=== PATIENT | female | born 1960 | race Caucasian/White ===

== ENCOUNTER → 2017-11-28 16:50 | Outpatient (CLI) | payer BC, SELFPAY ==
[2017-11-28 18:22] LABS: Thyroid Stim Hormone (TSH) 1.38 uIU/mL (0.358-3.74)
[2017-12-04 12:08] LABS: Testosterone, Free < 0.09 ng/dL (0.10-0.85); Testosterone, Total < 3 ng/dL (3-41)
[2017-12-04 14:28] LABS: Testosterone, % Free 2.95 % (0.50-2.80)
== END ==
PROVIDERS: Family Provider Family Medicine; PCP Family Medicine; Visit Provider Family Medicine
DX: L65.9 Nonscarring hair loss, unspecified (principal)
CPT/HCPCS: 36415; 84402; 84403; 84443

== ENCOUNTER → 2018-01-15 05:59 | Outpatient (CLI) | payer BC, SELFPAY ==
[2018-01-15 06:16] LABS: Bacteria 0 SEEN /hpf (None Seen); Mucous, Urine 0 SEEN /hpf (<or=2+); Red Blood Cells-Urine 0 SEEN /hpf (0-5); Squamous Epithelial Cells - UA 0 SEEN /hpf (5-10)
[2018-01-15 07:06] LABS: Absolute Lymphocyte Count 1.55 X10^3/ul (0.83-4.51); Absolute Neutrophil Count 3.2 X10^3/uL (2.0-7.7); Basophil# 0.03 X10^3/uL; Basophil% 0.6 % (0-1); Eosinophil# 0.18 X10^3/uL; Eosinophils% 3.3 % (0-5); Hematocrit 42.6 % (37-47); Hemoglobin 13.8 g/dl (12.0-15.0); Lymphocyte # 1.55 X10^3/ul (4.0); Lymphocyte % 28.4 % (19-41); Mean Corp Hgb Conc 32.4 g/gl (32-36); Mean Corpuscular Hgb 31.7 pg (27.0-32.0); Mean Corpuscular Volume 97.9 fL (81-99); Mean Platelet Vol. 10.1 fl (6.2-12.0); Monocyte# 0.53 X10^3/uL; Monocyte% 9.7 % (0-10); Neutrophil # 3.16 X10^3/uL (2.7-7.7); Platelet Count 274 K/mm3 (150-450); RBC Distribution Width CV 13.3 % (11.6-14.6); RBC Distribution Width SD 47.7 fl (35.1-43.9); Red Blood Count 4.35 M/mm3 (4.2-5.4); White Blood Count 5.5 K/mm3 (4.4-11.0)
[2018-01-15 07:28] LABS: ALB/GLOB Ratio 1.1 RATIO (0.9-2.4); AST(SGOT) 18 U/L (15-37); Alanine Aminotransfer ALT/SGPT 20 U/L (13-56); Albumin, Serum 4.1 g/dL (3.2-5.0); Alkaline Phosphatase 54 U/L (45-117); Anion Gap 6 (5-15); BUN 16 mg/dL (7-18); BUN/Creat Ratio 19.2 RATIO (10-20); Chloride 105 mmol/L (98-107); Cholesterol 171 mg/dL (200); Creatinine, Serum 0.84 mg/dL (0.55-1.02); EST Glomerular Filtration Rate 75 mL/min (>60); Est Glom Filt Rate - Afr Amer 91 mL/min (>60); Globulin 3.7 g/dL (2.2-4.2); Glucose 84 mg/dL (74-106); High Density Lipoprotein 49 mg/dL; Protein, Total 7.8 g/dL (6.4-8.2); Sodium Level 141 mmol/L (136-145); Triglycerides 64 mg/dL; Very Low Density Lipoprotein 13 mg/dL (5-40)
[2018-01-15 07:58] LABS: POSITIVE COUNT NO; POSITIVE DIFFERENTIAL NO; POSITIVE MORPHOLOGY NO
[2018-01-15 08:03] LABS: Color, Urine Yellow (Yellow); Glucose, Dipstick Normal (Normal); Ketone-Dipstick Negative (Negative); Leukocyte Esterase-Dipstick 25 /ul (Negative); Nitrite-Dipstick Negative (Negative); Occult Blood-Urine Negative /ul (Negative); Protein-Dipstick Negative (Negative); Specific Gravity, Urine 1.015 (1.002-1.030); Urine Bilirubin Dipstick Negative (Negative); Urine Clarity Sl. Cloudy (Clear); Urine Urobilinogen Normal (Normal)
[2018-01-15 08:20] LABS: White Blood Cells 0-5 SEEN /hpf (0-5)
== END ==
PROVIDERS: Family Provider Family Medicine; PCP Family Medicine; Visit Provider Family Medicine
DX: Z00.00 Encounter for general adult medical examination without abnormal findings (principal); R35.0 Frequency of micturition
CPT/HCPCS: 36415; 80053; 80061; 81001; 85025; 87086; 87088

== ENCOUNTER → 2018-11-20 | Outpatient (CLI) | payer BC, SELFPAY ==
--- NOTE | 2018-11-20 07:34 | BI_ITS ---
MAMMOGRAPHY - BILATERAL SCREENING REASON FOR EXAM: Female, 58 years old. Routine annual screening examination. PERTINENT HISTORY: Sister with breast cancer. TECHNIQUE: Digital bilateral breast ethel (3D mammographic acquisition) in the CC and MLO projections. 2-D mediolateral oblique (MLO) and craniocaudad (CC) views of both breasts were obtained. CAD: Full Field Digital Mammography with Computer Added Detection was performed. COMPARISON: Comparison is made with prior study dated June 19, 2017 and September 23, 2015. FINDINGS: Breast Composition: The breasts are heterogeneously dense, which may obscure small masses. There are no dominant masses or suspicious calcifications. No other significant abnormalities are identified. There has been no significant change since the prior study. BI/SCREENING MAMM (CAD), BILAT IMPRESSION: Stable bilateral screening mammogram. Yearly follow-up mammogram recommended. (A) ASSESSMENT CATEGORY: BIRADS Category 1: Negative. A letter regarding these results will be sent to the patient by the facility within 30 days. Approximately 10% of breast cancers are not detected by mammography. A normal mammogram should not delay biopsy of a clinically suspicious abnormality. [id number] Electronically Signed: Poncho Beckwith, at 11:03 EDT , Service support ,
== END | disposition home or self-care (01) ==
LOC: OPBI 07:33
PROVIDERS: Family Provider Family Medicine; PCP Family Medicine; Referring Provider Obstetrics & Gynecology; Visit Provider Obstetrics & Gynecology
DX: Z12.31 Encounter for screening mammogram for malignant neoplasm of breast (principal)
CPT/HCPCS: 77063; 77067

== ENCOUNTER → 2020-05-21 | Outpatient (CLI) | payer BC, SELFPAY | END | disposition home or self-care (01) | PROVIDERS: PCP Family Medicine; Visit Provider Nurse Practitioner Family | DX: Z20.828 Contact with and (suspected) exposure to other viral communicable diseases (principal) | CPT/HCPCS: 87635; U0003 ==

== ENCOUNTER → 2020-07-02 14:53 | Outpatient (CLI) | payer BC, SELFPAY ==
--- NOTE | 2020-07-02 14:55 | BI_ITS ---
MAMMOGRAPHY - BILATERAL SCREENING REASON FOR EXAM: Female, 59 years old. Routine annual screening examination. PERTINENT HISTORY: Sister with breast cancer. TECHNIQUE: Digital bilateral breast michael (3D mammographic acquisition) in the CC and MLO projections. 2-D mediolateral oblique (MLO) and craniocaudad (CC) views of both breasts were obtained. CAD: Full Field Digital Mammography with Computer Added Detection was performed. COMPARISON: Comparison is made with prior study dated 11/20/2018 and 06/19/2017. FINDINGS: Breast Composition: The breasts are heterogeneously dense, which may obscure small masses. A cluster of faint calcifications is now seen in the central slightly medial portion of the left breast. The patient will be recalled for additional views including magnification spot views. No other significant abnormalities are identified. BI/SCREEN MAMM (CAD) W/MICHAEL BILAT IMPRESSION: New cluster microcalcifications seen in the deep central medial portion of the left breast as described. The patient will be recalled for additional views including compression spot views. ASSESSMENT CATEGORY: BIRADS Category 0: Incomplete. Need additional imaging evaluation. A letter regarding these results will be sent to the patient by the facility within 30 days. Approximately 10% of breast cancers are not detected by mammography. A normal mammogram should not delay biopsy of a clinically suspicious abnormality. [id number] Electronically Signed: Poncho Beckwith, at 8:29 EST , Service support ,
== END ==
PROVIDERS: PCP Family Medicine; Referring Provider Family Medicine; Visit Provider Family Medicine
DX: Z12.31 Encounter for screening mammogram for malignant neoplasm of breast (principal); R92.0 Mammographic microcalcification found on diagnostic imaging of breast; Z80.3 Family history of malignant neoplasm of breast
CPT/HCPCS: 77063; 77067

== ENCOUNTER → 2020-07-06 14:36 | Outpatient (CLI) | payer BC, SELFPAY ==
--- NOTE | 2020-07-06 14:37 | BI_ITS ---
MAMMOGRAPHY - UNILATERAL DIAGNOSTIC: LEFT BREAST REASON FOR EXAM: Female, 59 years old. Abnormal screening mammogram. PERTINENT HISTORY: Sister with breast cancer. TECHNIQUE: Compression magnification spot views of the left breast in the craniocaudad and mediolateral oblique projections were obtained. CAD: Full Field Digital Mammography with Computer Added Detection was performed. COMPARISON: Comparison is made with prior examination dated 07/02/2020. FINDINGS: Breast Composition: The breasts are heterogeneously dense, which may obscure small masses. A cluster microcalcification is seen in the central slightly medial portion of the left breast. A biopsy is recommended. No other significant abnormalities are identified. BI/DIAG MAMM W/CAD, UNILAT IMPRESSION: Biopsy of the cluster of microcalcifications in the central slightly medial aspect of the breast is recommended. ASSESSMENT CATEGORY: BIRADS Category 4: Suspicious - Biopsy Should Be Considered. A letter regarding these results will be sent to the patient by the facility within 30 days. Approximately 10% of breast cancers are not detected by mammography. A normal mammogram should not delay biopsy of a clinically suspicious abnormality. Electronically Signed: Poncho Beckwith, at 15:12 EST , Service support ,
== END ==
PROVIDERS: PCP Family Medicine; Visit Provider Family Medicine
DX: R92.8 Other abnormal and inconclusive findings on diagnostic imaging of breast (principal); Z80.3 Family history of malignant neoplasm of breast
CPT/HCPCS: 77065

== ENCOUNTER → 2020-07-12 11:28 | Outpatient (CLI) | payer BC, SELFPAY ==
[2020-07-08 10:05] VITALS: BMI 26.6
--- NOTE | 2020-07-12 | BRBX_PTH ---
PATIENT: BEHZAD MOYER LOC: [facility] U#:[id number] AGE/SX: 64/F ROOM: RE07/12/[address]: Dr. Agustin Montero MD : 1960 BED: DIS: SPEC #: [id number] RECD: 07/12/20 12:58 STATUS: LUCAS VIC #: [id number] ARIES: 07/12/20 00:[address]: Agustin Montero DEPT: SURGICAL PATHOLOGY RECD BY: Timmy Deluca ENTERED: 07/12/20 12:58 SP TYPE: BREAST BX OTHR DR: Dr. 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 Nuclear Grade - 3 Necrosis - present (central comedo necrosis). Calcifications - present. See comment. TOPHER:lula 07/13/20 COMMENT Immunohistochemistry ([id number]) supports the above diagnosis. ER/NM/Byt0ijf studies are being performed on sections of tumor and the results from this study will be reported separately ([id number]). MICROSCOPIC DESCRIPTION Slides are reviewed. GROSS DESCRIPTION Received in fixative is one container labeled with the patient name and designated left breast. The specimen consists of multiple elongated fragments of hernandez-yellow fibroadipose tissue that in aggregate measure 5 x 3 x 0.3 cm. The entire specimen is submitted in two cassettes. / TOPHER:lula 07/12/20 TC:0 CPT: 00930
--- NOTE | 2020-07-12 | IMM_PTH ---
PATIENT: BEHZAD MOYER LOC: [facility] U#:[id number] AGE/SX: 64/F ROOM: RE07/12/[address]: Dr. Agustin Montero MD : 1960 BED: DIS: SPEC #: [id number] RECD: 07/13/20 13:46 STATUS: LUCAS REQ #: [id number] ARIES: 07/12/20 00:[address]: Agustin Montero DEPT: IMMUNOHISTOCHEMISTRY RECD BY: Siri Sanchez ENTERED: 07/13/20 13:47 SP TYPE: IMMUNO OTHR DR: Dr. Ernesto Buckner MD Tissues: Left breast, NOS Procedures: CALPONIN-1 (add) CK8 (add) E-CAD (add) HER2 KEON (add) AR (add) P40 (add) ER (initial) PHYSICIAN & INSTITUTION [place] [id number] SPECIMEN INFORMATION: Tissue Source: Left breast stereotactic core biopsy Clinical Info: Calcifications Specimen Number: [id number] #2 CPT code: 25998, 62664 x3, 70719 x3 METHODOLOGY: Deparaffinized sections of prefer/formalin-fixed tissue or PAP/DQ stained slides are incubated with monoclonal/polyclonal antibodies/oligonucleotide probes. Localization is made via biotin free immunoperoxidase method. Appropriate controls are performed and reacted as expected. Results on target cell population are indicated in the following table: RESULTS: ANTIBODY / CLONE RESULT Block 2 E-Cad (ECH-6) positive CK8 (43xgyxL30) positive Calponin-1 (HQ794S) positive P40 (BC28) positive MORPHOMETRIC ANALYSIS ER (clone 6F11) positive (>95%, strong intensity) AR (clone 16/1E2) positive (71%, low to moderate intensity) Her-2Neu (clone CB11) positive (2-3+) The prognostic test for HER2 is performed on formalin-fixed paraffin embedded tissue. A 3+ (positive) staining pattern is defined as intense, homogeneous, complete, circumferential membranous staining in >10% of contiguous tumor cells. A similar weak (2+) staining pattern is interpreted as equivocal. AMOR follow-up testing is recommended for all equivocal cases. Positivity/negativity for ER/AR is reported if > or < 1% of the tumor cells are immuno- reactive, respectively. The ASCO/CAP criteria is used for scoring. Reference: Journal of Clinical Oncology, 2013; 31:9817-6532 & 2010; 16:3991-9113. Duration of fixation: 7.5 Hrs; Sample Adequate: Yes. These assays have not been validated on decalcified tissues. Results should be interpreted with caution given the likelihood of false negativity on decalcified specimens. These tests were developed and their performance characteristics determined by [facility]. They may not have been cleared or approved by the U.S. Food and Drug Administration. The FDA has determined that such clearance or approval is not necessary. The above immunohistochemical/dualISH markers are ordered and reviewed by the Pathologist. INTERPRETATION: Left breast, stereotactic core biopsy: Ductal carcinoma in situ. SJ:lula 07/14/20
--- NOTE | 2020-07-12 11:06 | HP.PCM_ITS ---
Problem List (1) Abnormal mammogram of left breast Status: Acute History and Physical Date of Admission: 07/12/20 Intake Visit Reasons: LEFT BREAST BIRADS 4 Category Analyst Required: No Is patient in pain?: No Allergies Sulfa (Sulfonamide Antibiotics) Allergy (Unknown, Verified 07/08/20 10:07) unknown Medications wwyuqsh-wbrantsrbrmfw-sdxkiwok 250 mg-250 mg-65 mg tablet 1 tab PO ONCE 07/08/20 [History Confirmed 07/08/20] biotin 1 mg capsule 1 mg PO DAILY 07/08/20 [History Confirmed 07/08/20] cholecalciferol (vitamin D3) 10 mcg (400 unit) capsule 10 mcg PO DAILY 07/08/20 [History Confirmed 07/08/20] multivitamin 1 tab PO DAILY 07/08/20 [History Confirmed 07/08/20] saw palmetto 160 mg capsule 160 mg PO DAILY cap 07/08/20 [History Confirmed 07/08/20] PFSH Medical History Hx of migraines (Acute) Abnormal mammogram of left breast (Acute) Family history of breast cancer (Acute) Surgical History Hx of cataract extraction (Acute) Hx of dilation and curettage (Acute) Hx of wisdom tooth extraction (Acute) Hx of colonoscopy (Acute) Family History Mother Arthritis Father Diabetes Sister Breast cancer Social History (Updated 07/08/20 @ 10:[address] Agustin Montero MD) Smoking Status: Never smoker second hand exposure: No alcohol intake: never substance use type: does not use caffeine: Yes what type of physical activity do you participate in: walking frequency: 3-4 times per week HPI HPI HPI: BEHZAD MOYER, is a 59 F who presents to the office today for surgical consultation regarding an abnormal mammogram. The patient is referred by Dr Ernesto Buckner and a written copy of my surgical consult and recommendations will be returned to him 59-year-old female. G5, . Menarche was at age 13. First child was born when she was 28. She did breast-feed. She did spend some time in [place] and she had some breast cyst aspirations. She claims that a cytology was negative. Her family history is notable for a sister who of breast cancer at age 35. She is not aware that there is been any genetic testing previously obtained. At the [facility] on July 02, 2020 she had screening bilateral mammography. These were compared back to more recent films of November 20, 2018. The current films suggested a new cluster of microcalcifications deep central left breast. Subsequently on July 06, 2020 she had diagnostic left mammography. Cluster of microcalcifications centrally slightly medial left breast BI-RADS Category 4. She has not had any nipple discharge or bleeding. She is up-to-date with her colonoscopy approximately 2016 or 2017 HPI HPI HPI: BEHZAD MOYER, is a 59 F who presents to the office today for ROS General General: No weight change, appetite, fatigue, colon cancer, breast cancer or weakness HEENT HEENT: Yes eye surgery; no difficulty swallowing, eye injury, swollen glands or hoarseness Endo Endocrine: No thyroid disease, diabetes mellitus, thyroid cancer, Hair loss, heat intolerance or cold intolerance Skin Skin: No rash or changing moles Breast Breast: No left breast lump, right breast lump, nipple discharge, breast pain, abnormal mammogram, abnormal US or breast enlargement Neuro Neurologic: No weakness Exam Const General: healthy appearing, comfortable, no acute distress Nutritional Appearance: overweight Orientation: alert, awake [facility] Head: normal to inspection Eyes General: appearance normal, both eyes and all related structures Chest Breast Palpation: No nipple discharge Other: Right breast: No focal mass. No nipple discharge. No axillary or clavicular adenopathy Left breast: No focal mass. No nipple discharge. No distortion. No axillary or clavicular adenopathy. Very minimal tenderness medial left breast Resp Effort & Inspection: normal respiratory effort Auscultation: clear to auscultation bilaterally Cardio Rate: regular rate Rhythm: regular rhythm GI Palpation: soft, no hepatosplenomegaly Auscultation: normal bowel sounds Neuro Cognition: normal cognition Extrem General: no calf tenderness Psych Thought Process: normal Assessment & Plan Problems 1. Abnormal mammogram of left breast R92.8 Plan Abnormal right mammogram left breast with clustered microcalcifications medial deep central left breast. On my review these are certainly BI-RADS Category 4 and they are suspicious particularly in light of the patient's family history with a sister who from breast cancer. I certainly recommend a stereotactic needle core left breast biopsy and I have described the technique, benefit, risk, alternatives. We will schedule and expedite her care. 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 She states that she has never contracted COVID-19. She denies fever or cough or shortness of breath or abdominal pain or change of bowel habits or history of DVT I appreciate the opportunity of assisting with her surgical care Copy: Dr Ernesto Montero M.D., F.A.C.S. Coding Level of Care Code 36918 Diagnoses Abnormal mammogram of left breast R92.8 I have re-examined the patient. There are no clinical changes since date of exam. Procedure Criteria Procedure Type: Elective COVID Risk Discussion: The surgeon/proceduralist and patient have discussed in detail the risk of exposure to and/or potential harm posed by the COVID-19 virus with having a surgery/procedure at this time versus the risk of delaying the surgery/procedure. It is not possible to know either the risk of delaying the surgery or procedure or chance of getting an infection with perfect accuracy, but a joint decision was made between the patient and the surgeon/proceduralist to proceed at this time with the scheduled surgery/procedure as indicated on the consent form.
--- NOTE | 2020-07-12 12:10 | PCM.OPRPT ---
Problem List (1) Abnormal mammogram of left breast Status: Acute Report of Operation Date of Procedure: 07/12/20 Pre-Operative Diagnosis: Abnormal medial left breast mammogram with clustered microcalcifications Post-Operative Diagnosis: Same Surgery/Procedure Performed:: Stereotactic needle core biopsy medial left breast Description of Surgical Findings:: Timeout and informed consent was obtained. 59-year-old female was taken to the procedure room placed prone on the table. The left breast was placed in a craniocaudal view. Microcalcifications were rapidly identified. Stereotactic images were obtained. Digital information was obtained on a single target site. The breast was prepped with Betadine. 1% lidocaine was used as a local anesthetic. Total 10 cc was used. Small stab incision was created. An 8 gauge resolved needle was advanced to prefire depth. Prefire films were obtained demonstrating adequate localization. The device was fired. 6 cores were obtained from 9:00 to 3:00 superiorly. A marking clip was left at 12:00. On fast view demonstrated some resolution of the microcalcifications but more in the inferior position. The marking clip was good in place. Specimen mammogram was obtained demonstrating some microcalcifications. I reinserted the needle and took 5 more cores inferiorly. Specimen right and grams of these were obtained demonstrating many more microcalcifications. And on fast view demonstrated the marking clip to still be in position. She was released from the device and pressure was held for hemostasis. Steri-Strip Telfa OpSite dressing applied. The specimens had been immediately transferred to formalin. Specimen scores. Drains none. Blood loss minimal. The patient was taken to the recovery area. No apparent complications. Final pathology pending. Agustin Montero M.D., F.A.C.S. Type of Anesthesia:: Local
== END ==
PROVIDERS: PCP Family Medicine; Referring Provider Surgery; Visit Provider Surgery
DX: D05.12 Intraductal carcinoma in situ of left breast (principal); Z79.82 Long term (current) use of aspirin; Z80.3 Family history of malignant neoplasm of breast
CPT/HCPCS: 19081; 88305; 88341; 88342; J7050

== ENCOUNTER 2020-07-26 06:26 | Day surgery (SDC) | payer BC, SELFPAY ==
--- NOTE | 2020-07-21 09:37 | EKG12_ITS ---
Test Reason : PREOP Blood Pressure : / mmHG Vent. Rate : 082 BPM Atrial Rate : 082 BPM P-R Int : 146 ms QRS Dur : 088 ms QT Int : 360 ms P-R-T Axes : 062 065 053 degrees QTc Int : 420 ms Normal sinus rhythm Normal ECG Confirmed by TONIA WORRELL, WILLIAM ([id number]), fashion editor MARIO JOHNSON ([id number]) on 07/21/2020 12:36:23 PM Referred By: Agustin Montero Confirmed By:WILLIAM RANDALL MD
[2020-07-21 10:58] LABS: Hematocrit 43.1 % (37-47); Hemoglobin 13.8 g/dL (12.0-15.0); Mean Corpuscular Hgb 31.7 pg (27.0-32.0); Mean Corpuscular Volume 98.9 fL (81-99); Mean Platelet Vol. 10.2 fl (6.2-12.0); Platelet Count 310 K/mm3 (150-450); RBC Distribution Width CV 13.1 % (11.6-14.6); RBC Distribution Width SD 48.1 fl (35.1-43.9); Red Blood Count 4.36 M/mm3 (4.2-5.4); White Blood Count 5.5 K/mm3 (4.4-11.0)
[2020-07-21 11:02] LABS: Anion Gap 4 (5-15); BUN 11 mg/dL (7-18); Calcium,Total 9.1 mg/dL (8.5-10.1); Chloride 107 mmol/L (98-107); Creatinine, Serum 0.78 mg/dL (0.55-1.02); EST Glomerular Filtration Rate 80 mL/min (>60); Est Glom Filt Rate - Afr Amer 97 mL/min (>60); Glucose 90 mg/dL (74-106); Potassium 4.2 mmol/L (3.5-5.1); Sodium Level 140 mmol/L (136-145)
[2020-07-26] VITALS (7 sets, daily range): BP systolic 108–141; BP diastolic 70–88; PULSE 93–100; RESP 16–18; TEMP 36.4–37.1; O2SAT 95–100; BMI 27.2
--- NOTE | 2020-07-26 | BRBX_PTH ---
PATIENT: BEHZAD MOYER LOC: [facility] [place] U#:[id number] AGE/SX: 59/F ROOM: RE07/26/[address]: Dr. Agustin Montero MD : 1960 BED: DIS: 07/26/2020 SPEC #: [id number] RECD: 07/26/20 08:39 STATUS: LUCAS REQ #: [id number] ARIES: 07/26/20 00:[address]: Agustin Montero DEPT: SURGICAL PATHOLOGY RECD BY: Siri Sanchez ENTERED: 07/26/20 09:14 SP TYPE: BREAST BX OTHR DR: MD Dr. Ernesto Mccarty MD Tissues: Right breast, NOS Procedures: Surgery Specimen Level V HEADER OPERATION: Left breast stereotactic wire localization lumpectomy PRE-OP DIAGNOSIS: DCIS left breast TISSUE SUBMITTED: Tissue, left breast, wire - superior, long suture - lateral, short suture - anterior MICROSCOPIC DIAGNOSIS Left breast, lumpectomy wire localization: Ductal carcinoma in situ. See cancer summary in the comment section. SJ:lula 07/29/2020 COMMENT DUCTAL CARCINOMA IN SITU SUMMARY: Procedure - excision (lumpectomy with wire localization) Specimen laterality - left Tumor site - not specified Ductal carcinoma in situ: Size (extent) of DCIS - 0.6 x 0.5 cm (measured microscopically) Number of blocks with DCIS - 3 Number of blocks examined - 12 Histologic type - ductal carcinoma in situ Architectural pattern - solid and comedo Nuclear grade - grade 2-3 (intermediate to high) Necrosis - present, central (expansive comedo necrosis) Margins - margins uninvolved by ductal carcinoma in situ. The ductal carcinoma in situ is 1.3 cm away from the anterior margin and 1.7 cm away from the second closest superior margin. Regional lymph nodes - no lymph nodes submitted or found. Distant metastasis - not applicable Additional pathologic findings - fibrocystic changes, adenosis and intraductal hyperplasia without atypia. - Changes consistent with previous biopsy site. Ancillary Studies: Previously performed ([id number] / [id number]) ER: positive (>95%, strong intensity) MN: positive (71%, low to moderate intensity) Rov0vee: positive (2-3+) Microcalcifications - present in DCIS and non-neoplastic tissue. Clinical History - Please make reference to previous specimen ([id number]) left breast, stereotactic core biopsy with diagnosis of ductal carcinoma in situ. Radiologic findings - calcifications PATHOLOGIC STAGING: pTis(DCIS) pNx pMx The above summary is in compliance with [employer] (CAP) Cancer Protocols Checklist and [place] Joint Committee on Cancer (AJCC), Staging Manual, 8th Ed. Case has been reviewed in consultation with Dr. Low who concurs with the above diagnosis. IDC:AM MICROSCOPIC DESCRIPTION Slides are reviewed. GROSS DESCRIPTION Received fresh for intraoperative consultation labeled with the patient's name and designated left breast tissue. The specimen consists of a piece of fibroadipose tissue with wire localization measuring 6 x 5 x 4.5 cm. The specimen is oriented as follows: wire - superior, long suture - lateral and short suture - anterior. The specimen is inked as follows: anterior - yellow, posterior - black, superior - blue, inferior - green, medial - red and lateral - orange. Serial sections reveal a biopsy cavity measuring 2.5 x 2.5 x 2 cm. No mass lesion is identified. The biopsy cavity is 0.5 cm away from the superior and 0.5 cm away from the closest anterior margins. This information is conveyed to the surgeon intraoperatively. Sections of the rest of the specimen reveal hernandez-yellow adipose cut surfaces mixed with hernandez-white fibrous area. Paper Sorter sections are submitted in 12 cassettes as follows: 1 - perpendicular medial and lateral margins, 2 - perpendicular posterior and inferior margins, 3-9 - biopsy cavity with closest anterior and superior margins, 10-12 - customer counter representative sections away from biopsy cavity. Sections will be submitted after additional fixation. / SJ:lula 07/27/2020 TC:0 [facility]: [id number], [id number]
[2020-07-26] MEDS: Lactated Ringers 1,000 ML 100 ML IV (07:08)
--- NOTE | 2020-07-26 07:12 | HP.PCM_ITS ---
Problem List (1) Ductal carcinoma in situ (DCIS) of left breast Status: Acute History and Physical Date of Admission: 07/26/20 MR#:[id number]:[id number] Name: BEHZAD MOYER Rep #: [id number] : 1960 Provider: Dr. Srini Montero MD Age/Sex: 59/F Location: [facility] Status: Signed Intake Intake Visit Reasons: discuss surgery Chief Complaint: discuss breast surgery Lactation Coordinator Required: No Is patient in pain?: No Allergies Sulfa (Sulfonamide Antibiotics) Allergy (Unknown, Verified 07/19/20 11:58) unknown Medications fxwqtkk-jfaayamzwgfmh-irylswwp 250 mg-250 mg-65 mg tablet 1 tab PO ONCE 07/08/20 [History Confirmed 07/19/20] biotin 1 mg capsule 1 mg PO DAILY 07/08/20 [History Confirmed 07/19/20] cholecalciferol (vitamin D3) 10 mcg (400 unit) capsule 10 mcg PO DAILY 07/08/20 [History Confirmed 07/19/20] multivitamin 1 tab PO DAILY 07/08/20 [History Confirmed 07/19/20] saw palmetto 160 mg capsule 160 mg PO DAILY cap 07/08/20 [History Confirmed 07/19/20] Is last menstrual period known: No Post menopausal: Yes Patient : No PFSH Medical History (Updated 07/19/20 @ 14:[address] Agustin Montero MD) Ductal carcinoma in situ (DCIS) of left breast (Acute) Hx of migraines (Acute) Abnormal mammogram of left breast (Acute) Family history of breast cancer (Acute) DCIS (ductal carcinoma in situ) of breast (Acute ~06/2020) Surgical History Hx of cataract extraction (Acute) Hx of dilation and curettage (Acute) Hx of wisdom tooth extraction (Acute) Hx of colonoscopy (Acute) Family History Mother Arthritis Father Diabetes Sister Breast cancer Social History (Updated 07/19/20 @ 14:[address] Agustin Montero MD) Smoking Status: Never smoker second hand exposure: No alcohol intake: never substance use type: does not use caffeine: Yes what type of physical activity do you participate in: walking frequency: 3-4 times per week HPI HPI HPI: BEHZAD MOYER, is a 59 F who presents to the office today for Ongoing surgical consultation discussing regarding a stereotactic needle core left breast biopsy medial central left breast that I performed for her on July 12, 2020 Pathology demonstrates ductal carcinoma in situ. Solid and cribriform. Nuclear grade 3. Necrosis is present with central comedonecrosis. Calcifications present. ER is positive at greater than 95%. DE is positive at 71% low to moderate intensity. HER-2/mony is positive at 2-3+ My previous notes reflect the following: Intake Visit Reasons: LEFT BREAST BIRADS 4 Lactation Coordinator Required: No Is patient in pain?: No Allergies Sulfa (Sulfonamide Antibiotics) Allergy (Unknown, Verified 07/08/20 10:07) unknown Medications zqclduf-uqsivwyqgiejw-jksjkumn 250 mg-250 mg-65 mg tablet 1 tab PO ONCE 07/08/20 [History Confirmed 07/08/20] biotin 1 mg capsule 1 mg PO DAILY 07/08/20 [History Confirmed 07/08/20] cholecalciferol (vitamin D3) 10 mcg (400 unit) capsule 10 mcg PO DAILY 07/08/20 [History Confirmed 07/08/20] multivitamin 1 tab PO DAILY 07/08/20 [History Confirmed 07/08/20] saw palmetto 160 mg capsule 160 mg PO DAILY cap 07/08/20 [History Confirmed 07/08/20] PFSH Medical History Hx of migraines (Acute) Abnormal mammogram of left breast (Acute) Family history of breast cancer (Acute) Surgical History Hx of cataract extraction (Acute) Hx of dilation and curettage (Acute) Hx of wisdom tooth extraction (Acute) Hx of colonoscopy (Acute) Family History Mother Arthritis Father Diabetes Sister Breast cancer Social History (Updated 07/08/20 @ 10:[address] Agustin Montero MD) Smoking Status: Never smoker second hand exposure: No alcohol intake: never substance use type: does not use caffeine: Yes what type of physical activity do you participate in: walking frequency: 3-4 times per week HPI HPI HPI: BEHZAD MOYER, is a 59 F who presents to the office today for surgical consultation regarding an abnormal mammogram. The patient is referred by Dr Ernesto Buckner and a written copy of my surgical consult and recommendations will be returned to him 59-year-old female. G5, . Menarche was at age 13. First child was born when she was 28. She did breast-feed. She did spend some time in [place] and she had some breast cyst aspirations. She claims that a cytology was negative. Her family history is notable for a sister who of breast cancer at age 35. She is not aware that there is been any genetic testing previously obtained. At the [facility] on July 02, 2020 she had screening bilateral mammography. These were compared back to more recent films of November 20, 2018. The current films suggested a new cluster of microcalcifications deep central left breast. Subsequently on July 06, 2020 she had diagnostic left mammography. Cluster of microcalcifications centrally slightly medial left breast BI-RADS Category 4. She has not had any nipple discharge or bleeding. She is up-to-date with her colonoscopy approximately 2016 or 2017 HPI HPI HPI: BEHZAD MOYER, is a 59 F who presents to the office today for ROS General General: No weight change, appetite, fatigue, colon cancer, breast cancer or weakness HEENT HEENT: Yes eye surgery; no difficulty swallowing, eye injury, swollen glands or hoarseness Endo Endocrine: No thyroid disease, diabetes mellitus, thyroid cancer, Hair loss, heat intolerance or cold intolerance Skin Skin: No rash or changing moles Breast Breast: No left breast lump, right breast lump, nipple discharge, breast pain, abnormal mammogram, abnormal US or breast enlargement Neuro Neurologic: No weakness Exam Const General: healthy appearing, comfortable, no acute distress Nutritional Appearance: overweight Orientation: alert, awake [facility] Head: normal to inspection Eyes General: appearance normal, both eyes and all related structures Chest Breast Palpation: No nipple discharge Other: Right breast: No focal mass. No nipple discharge. No axillary or clavicular adenopathy Left breast: No focal mass. No nipple discharge. No distortion. No axillary or clavicular adenopathy. Very minimal tenderness medial left breast Resp Effort & Inspection: normal respiratory effort Auscultation: clear to auscultation bilaterally Cardio Rate: regular rate Rhythm: regular rhythm GI Palpation: soft, no hepatosplenomegaly Auscultation: normal bowel sounds Neuro Cognition: normal cognition Extrem General: no calf tenderness Psych Thought Process: normal Assessment & Plan Problems 1. Abnormal mammogram of left breast R92.8 Plan Abnormal right mammogram left breast with clustered microcalcifications medial deep central left breast. On my review these are certainly BI-RADS Category 4 and they are suspicious particularly in light of the patient's family history with a sister who from breast cancer. I certainly recommend a stereotactic needle core left breast biopsy and I have described the technique, benefit, risk, alternatives. We will schedule and expedite her care. 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 She states that she has never contracted COVID-19. She denies fever or cough or shortness of breath or abdominal pain or change of bowel habits or history of DVT I appreciate the opportunity of assisting with her surgical care Copy: Dr Ernesto Montero M.D., F.A.C.S. HPI HPI HPI: BEHZAD MOYER, is a 59 F who presents to the office today for ROS General General: No weight change, appetite, fatigue, colon cancer or breast cancer HEENT HEENT: Yes eye surgery; no difficulty swallowing, eye injury, swollen glands or hoarseness Endo Endocrine: No thyroid disease, diabetes mellitus, thyroid cancer, Hair loss, heat intolerance or cold intolerance Skin Skin: No rash or changing moles Breast Breast: Yes abnormal mammogram; no left breast lump, right breast lump, nipple discharge, breast pain, abnormal US or breast enlargement Musc Musculoskeletal: No back problems, arthritis, rheumatoid arthritis, gout or joint pain Cardio Cardiovascular: No murmur, pacemaker, heart disease, atrial fibrillation, high blood pressure, heart attack, heart stent, palpitations, shortness of breat with exertion or chest pain Psych Psychiatric: No depression, anxiety or hearing voices Resp Respiratory: No shortness of breath, No sleep apnea, No cough, No COPD, No asthma, No emphysema, No wheezing Gastro Gastrointestinal: No abdominal pain, No nausea or vomiting, No diarrhea, No constipation, No blood in stool, No acid reflux, No hemorrhoids, No ulcers, No gallbladder problem, No black,tarry stools Candido Hematologic: No blood thinners, No blood disorders, No bleeding, No anemia, No blood clots Exam Chest Breast Palpation: No nipple discharge Cardio Heart Sounds: no murmurs Assessment & Plan Problems 1. Ductal carcinoma in situ (DCIS) of left breast D05.12 Plan The patient presents with her today. I had an extensive 35-minute myho-rs-aldh consultative appointment with her regarding her stereotactic needle core biopsy findings of DCIS mid central left breast. I take an additional core samples at the time of the procedure and multiple cores had microcalcifications present. On her post biopsy films a large proportion of the microcalcifications had been removed though there were still some remaining. The marking clip was in good position. I discussed with her typical surgical treatment for DCIS. 12 cores were submitted. All of them demonstrate DCIS. There is no evidence for invasive cancer. I propose for her a stereotactic wire localization with wire localized lumpectomy. We have discussed the potential for occult invasive cancer be present. We have discussed the potential for positive surgical margins. We have discussed recommendations for future radiation treatment as well as hormonal manipulation. She is aware that she is at increased risk. As noted before she has a sister who from breast cancer. She has not pursued genetic testing as of yet. I additionally recommended to her hematology oncology consultation and radiation oncology consultation. She was interested and who would be in her insurance profile. She was interested in further investigating who was available in [place]. I did discuss with her the persons we have available here at the [facility] in their affiliation with the [facility] cancer treatment center. She has had an opportunity to ask and have questions answered. She will consider treatment options. She is additionally aware of COVID-19. She is aware that many of the referral hospitals currently are not proceeding with elective surgical intervention secondary to the surge of COVID-19. She is aware that we are not currently proceeding with local procedures particularly if we can accomplish them as an outpatient. To the best my ability I have answered the questions and concerns today. She will schedule procedure at her discretion. Copy: Dr Ernesto Montero M.D., F.A.C.S. Coding Level of Care Code Off vis,est,level 3 Diagnoses Ductal carcinoma in situ (DCIS) of left breast D05.12 I have re-examined the patient. There are no clinical changes since date of exam. Procedure Criteria Procedure Type: Elective COVID Risk Discussion: The surgeon/proceduralist and patient have discussed in detail the risk of exposure to and/or potential harm posed by the COVID-19 virus with having a surgery/procedure at this time versus the risk of delaying the surgery/procedure. It is not possible to know either the risk of delaying the surgery or procedure or chance of getting an infection with perfect accuracy, but a joint decision was made between the patient and the surgeon/proceduralist to proceed at this time with the scheduled surgery/procedure as indicated on the consent form.
--- NOTE | 2020-07-26 07:20 | BI_ITS ---
SURGICAL BREAST SPECIMEN RADIOGRAPH CLINICAL: Document presence of calcifications in biopsy specimen. FINDINGS: Specimen shows presence of calcifications. Electronically Signed: Poncho Beckwith, at 9:07 EST , Service support , BI/Breast Biopsy Specimen
--- NOTE | 2020-07-26 07:43 | PCM.OPRPT ---
Problem List (1) Ductal carcinoma in situ (DCIS) of left breast Status: Acute Report of Operation Date of Procedure: 07/26/20 Pre-Operative Diagnosis: Ductal carcinoma in situ central inner left breast Post-Operative Diagnosis: Same Surgery/Procedure Performed:: Stereotactic wire localization left breast. Wire localized left breast lumpectomy Description of Surgical Findings:: Timeout and informed consent was obtained. 59-year-old female was taken to the mammography suite. She was placed prone on the table. The left breast was placed in a cc view. The microcalcifications and previous marking clip were identified. Stereotactic image was obtained. Digital information was obtained on a single target site. The breast was prepped with Betadine. 1% lidocaine was used as a local anesthetic. Local was instilled. A Kopan's needle was advanced to depth +15 mm. The wire was dislodged. Stereotactic images demonstrated good positioning. The wire was stabilized with tape. Sterile dressing was applied. She was subsequently taken to the operating for definitive resection. Timeout and informed consent was obtained. She was taken to the operating room and placed upon the table. She underwent general anesthesia. The left breast was sterilely prepped and draped. A curvilinear incision was made based upon wire positioning. Sharp and blunt dissection was sutured down through the subcutaneous tissue. Electrocautery was utilized for hemostasis and dissection. The breast tissue was extraordinarily dense. Carefully dissected the supraumbilical position. Tissue was completely eventually excised. Palpation and visualization failed to reveal any residual tissue. The wire exited superiorly a short suture was placed anteriorly and a long suture laterally. Specimen mammogram was obtained demonstrating multiple microcalcifications adjacent to the wire and marking clip all completely removed with apparent good margins. 4 small hemoclips were placed at the margins of the resection. Hemostasis was assured with electrocautery and interrupted 3-0 Vicryl sutures. The periincisional area was anesthetized with 30 cc of 0.5% Marcaine. The wound was closed in layers interrupted 3-0 Vicryl and then interrupted subdermal 4-0 Monocryl. Steri-Strips Telfa OpSite bulky dry dressings applied. Sponge and instrument and needle counts were reported to the surgeon to be correct. Blood loss minimal. Specimen lumpectomy. Drains none. Blood loss minimal. The patient was taken to the recovery area in satisfactory edition without apparent complication Agustin Montero M.D., F.A.C.S. Type of Anesthesia:: General Anesthesiologist: Juvenal Arora
--- NOTE | 2020-07-26 07:46 | DCINST_ITS ---
Discharge Diet: No Restrictions Discharge Activity: May Not Drive - for 2-3 days or while taking narcotic pain meds. May shower in (days): 1 Lifting Restrictions: 10 pounds for 1 week. Call your doctor if your incision/area has: Continuous Slow Oozing, Sudden In creased Bleeding Call your doctor if you observe: Fever of 101 or Higher Suture Line Care: Avoid Pulling/Pushing, Avoid Pinching/Bending Remove Dressing in (days):: 1 - Remove bulky dressing tomorrow. May leave any opsite dressing for 3-4 days. Keep dressing in place until your follow-up appointment. Additional Dressing/Incision Instructions:: Remove bulky dressing tomorrow. May leave any opsite dressing for 3-4 days. Keep dressing in place until your follow-up appointment. Allergies/Adverse Reactions: Allergies Sulfa (Sulfonamide Antibiotics) Allergy (Unknown, Verified 07/26/20 06:54) unknown Medications to take at Discharge ptenzlx-xluokykfpkxus-dzhrwkpb 250 mg-250 mg-65 mg tablet 1 tab PO ONCE PRN 07/08/20 biotin 1 mg capsule 5,000 mcg PO DAILY 07/08/20 cholecalciferol (vitamin D3) 10 mcg (400 unit) capsule 25 mcg PO DAILY 07/08/20 multivitamin 1 tab PO DAILY 07/08/20 saw palmetto 160 mg capsule 450 mg PO DAILY cap 07/08/20 Primary Care Physician: Ernesto Buckner MD [Primary Care Provider] - Please Follow Up With: Agustin Montero MD When: Office appt. approx. 10 days please. [phone]
[2020-07-26] MEDS: Bupivacaine Mpf 0.5% 30 ML VIAL (08:40)
== END 2020-07-26 11:46 | disposition home or self-care (01) ==
LOC: SDC 06:28 → AC 06:28
PROVIDERS: PCP Family Medicine; Referring Provider Surgery; Visit Provider Surgery
PROC: (CPT 19301; principal; 2020-07-26 08:15)
DX: D05.12 Intraductal carcinoma in situ of left breast (principal); Z79.82 Long term (current) use of aspirin; Z20.828 Contact with and (suspected) exposure to other viral communicable diseases; Z80.3 Family history of malignant neoplasm of breast
CPT/HCPCS: 19301; 19281; 36415; 76098; 80048; 85027; 87426; 88305; 88307; 93005; C9803; J7120; J2405

== ENCOUNTER 2020-09-16 12:57 | Outpatient (RCR) | payer BC, SELFPAY ==
[2020-07-26 06:56] VITALS: BMI 27.2
== END 2020-09-16 23:59 ==
LOC: IMMUN 12:57
PROVIDERS: PCP Family Medicine; Visit Provider Family Medicine
DX: Z23 Encounter for immunization (principal)
CPT/HCPCS: 0011A; 0012A

== ENCOUNTER → 2021-07-07 14:29 | Outpatient (CLI) | payer OTHER, SELFPAY ==
--- NOTE | 2021-07-07 14:31 | BI_ITS ---
MAMMOGRAPHY - BILATERAL SCREENING REASON FOR EXAM: Female, 60 years old. Routine annual screening examination. PERTINENT HISTORY: Personal history of breast cancer. Prior left lumpectomy with radiation treatment. Sister with breast cancer. TECHNIQUE: Digital bilateral breast michael (3D mammographic acquisition) in the CC and MLO projections. 2-D mediolateral oblique (MLO) and craniocaudad (CC) views of both breasts were obtained. CAD: Full Field Digital Mammography with Computer Added Detection was performed. COMPARISON: Comparison is made with prior study dated 07/02/2020 and 11/20/2018. FINDINGS: Breast Composition: The breasts are heterogeneously dense, which may obscure small masses. There are no dominant masses or suspicious calcifications. Since prior examination, the patient underwent a lumpectomy in the upper deep central portion of the left breast. Postsurgical scarring is seen at that site. No new mass lesion or cluster of microcalcifications present. No other significant abnormalities are identified. BI/SCRN MAMM (CAD)W/MICHAEL BILAT IMPRESSION: Status post lumpectomy in the upper deep midportion of the left breast as described. Yearly follow-up mammogram recommended. (A) ASSESSMENT CATEGORY: BIRADS Category 2: Benign. A letter regarding these results will be sent to the patient by the facility within 30 days. Approximately 10% of breast cancers are not detected by mammography. A normal mammogram should not delay biopsy of a clinically suspicious abnormality. [id number] Electronically Signed: Poncho Beckwith MD at 15:29 EST , Service support ,
== END ==
PROVIDERS: PCP Family Medicine; Referring Provider Surgery; Visit Provider Surgery
DX: Z12.31 Encounter for screening mammogram for malignant neoplasm of breast (principal); Z85.3 Personal history of malignant neoplasm of breast; Z80.3 Family history of malignant neoplasm of breast
CPT/HCPCS: 77063; 77067

== ENCOUNTER → 2022-03-23 | Outpatient (CLI) | payer OTHER, SELFPAY ==
--- NOTE | 2022-03-23 09:31 | RAD_ITS ---
EXAM: XR CERVICAL SPINE, 4 OR 5 VIEWS CLINICAL INDICATION: pain in neck, shoulders, trapezius and radicular pain that is non TECHNIQUE: Frontal, lateral and bilateral oblique views of the cervical spine. This report was created using [employer] report [employer] technology. COMPARISON: None. FINDINGS: VERTEBRAE: Multilevel facet arthropathy. Preserved vertebral body height. No acute fracture. No spondylolisthesis. Preservation of the normal cervical lordosis. DISC SPACES: Disc space narrowing and mild vertebral body hypertrophy noted at C5-6. Mild neural foraminal narrowing noted bilaterally at C5-6 and on the right at C3-4 secondary to uncinate joint hypertrophy. SOFT TISSUES: Normal. No prevertebral soft tissue widening. LUNG APICES: Clear. RAD/Cerv Spine 4 or 5 Views IMPRESSION: No acute abnormality. Spondylosis as described. Electronically Signed: Sam Villagomez MD at 10:52 EDT ,
--- NOTE | 2022-03-23 09:34 | RAD_ITS ---
EXAM: XR THORACIC SPINE, 3 VIEWS CLINICAL INDICATION: CERVICAL STRAIN TECHNIQUE: Frontal, lateral and swimmer''s views of the thoracic spine. This report was created using [employer] report [employer] technology. COMPARISON: None. FINDINGS: VERTEBRAE: Normal. Preserved vertebral body height. No fracture. No spondylolisthesis. Accentuated thoracic kyphosis of the upper thoracic spine. No significant facet arthropathy. DISC SPACES: Normal. Disc spaces are maintained. RAD/Thoracic Spine 3 Views IMPRESSION: No evidence of thoracic spinal fracture or spondylolisthesis. Electronically Signed: Sam Villagomez MD at 10:55 EDT ,
== END | disposition home or self-care (01) ==
LOC: MTRAD 09:31
PROVIDERS: PCP Family Medicine; Referring Provider Family Medicine; Visit Provider Family Medicine
DX: S16.1XXA Strain of muscle, fascia and tendon at neck level, initial encounter (principal)
CPT/HCPCS: 72050; 72072

== ENCOUNTER 2022-04-06 07:00 | Outpatient (RCR) | payer OTHER, SELFPAY ==
--- NOTE | 2022-03-17 09:05 | HP.PTEVAL ---
Patient's Visit Information BEHZAD MOYER is a 61 year old F referred to Physical Therapy by Dr. Barbara Hanson MD with a diagnosis of CERVICALALGIA ,BILATERAL TRAPEZIUS. Date of Evaluation: 03/17/22 Physical Therapist: Duke Kay, PT, Cert MDT, OCS - Visit Plan Frequency: 2x /Week Duration: 4 Weeks Plan: PT INTERVETIONS MANUAL THERAPY STM,CERVICAL ROM/FLEXABLITY ,POSTURAL EX'S ,STRENGTHENING AND MODALTIES PRN - Subjective This 61 y/o female presents to physical therapy with neck pain. Patient has cervical pain and UT symptoms for several years. Patient has h/o HUGHES when walking up in morning. Thought symptoms with monitor at work thus adjustments . Symptom have persisted past couple weeks. Seen DR dayana henson. And recommended PT and massage. Symptoms located UT shoulders neck UT and base occiput with no radicular symptoms in arms. Patient has paresthesia/tingling. Denies tinnitus/nausea. Patient does a lot sitting at computer. Symptoms don't affect sleeping and better in morning and worse at end of day. Aggravating factors sitting at work on computer .flexion ( looking down) ,carrying something heavy. No diagnostics. Alleviating resting resting. Coughing/sneezing-. Patient condition affects QOL and job demands. SOCIAL: . 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 - Pain Bilateral Neck Pain Intensity (Out of 10): 2 Pain Intensity Range: 10 - Objective POSTURE: mild forward posture ,rounded shoulders head forward. NEURO: denies paresthesia/tingling. PALPTION: UT/levator scapular ,scalene. BUE: AROM WFL. MMT: grossly 4/5. CERVICAL ROM: flexion min loss ,extension min/mod loss ,lateral flexion mod loss, rotation mod loss, protrusion WFL ,retraction min loss - Special Tests C/S Radiculapathy - Left Upper limb tension test: Negative C/S Radiculapathy - Right Upper limb tension test: Negative C/S Radiculapathy - Left Spurlings: Negative C/S Radiculapathy - Right Spurlings: Negative C/S Radiculapathy - Left Cervical distraction: Negative C/S Radiculapathy - Right Cervical distraction: Negative C/S Radiculapathy - Left Relief test: Negative C/S Radiculapathy - Right Relief test: Negative Sharp Nayla: Negative Vertebral Artery Test: Negative Alar Ligament Test: Negative Cervical Sitting: Protrusion - Mechanical Response: No effect Cervical Sitting: Protrusion - Symptoms During Testing: No effect Cervical Sitting: Protrusion - Symptoms After Testing: No effect Cervical Sitting: Retraction - Mechanical Response: No effect Cervical Sitting: Retraction - Symptoms During Testing: No effect Cervical Sitting: Retraction - Symptoms After Testing: No effect Cervical Sitting: Retraction-Extension - Mechanical Response: No effect Cerv Sitting: Retraction-Extension - Symptoms During Testing: No effect Cerv Sitting: Retraction-Extension - Symptoms After Testing: No effect Cervical Sitting: Sidebend Right - Mechanical Response: No effect Cervical Sitting: Sidebend Right - Symptoms During Testing: No effect Cervical Sitting: Sidebend Right - Symptoms After Testing: No effect Cervical Sitting: Sidebend Left - Mechanical Response: No effect Cervical Sitting: Sidebend Left - Symptoms During Testing: No effect Cervical Sitting: Sidebend Left - Symptoms After Testing: No effect Cervical Sitting: Rotation Right - Mechanical Response: No effect Cervical Sitting: Rotation Right - Symptoms During Testing: No effect Cervical Sitting: Rotation Right - Symptoms After Testing: No effect Cervical Sitting: Rotation Left - Mechanical Response: No effect Cervical Sitting: Rotation Left - Symptoms During Testing: No effect Cervical Sitting: Rotation Left - Symptoms After Testing: No effect Cervical Sitting: Flexion - Mechanical Response: No effect Cervical Sitting: Flexion - Symptoms During Testing: No effect Cervical Sitting: Flexion - Symptoms After Testing: No effect - Balance/Special Test Scores Oswestry Neck Score: 20 - Goals Goal 1:: Patient to be I with HEP for cervical spine to manage symptoms Goal Time Frame: 4-6 Weeks Goal 2:: Patient to demonstrate 50% improvement with daily function with job demands and housework tasks Goal Time Frame: 4-6 Weeks Goal 3:: Patient to improve cervical ROM for function of recovery for job demands Goal Time Frame: 4-6 Weeks Goal 4:: Patient to improve neck oswestry score by 5 points to improve QOL Goal Time Frame: 4-6 Weeks Goal 5:: Patient improve posture for ADL's and job demands by 80% to function Goal Time Frame: 4-6 Weeks - Rehabilitation Potential Physical Therapy Diagnosis: This patient has cervical pain with UT/levtor tightness with spasms and along with pain with positioning affecting job demands and housework tasks thus benefit From skilled PT Rehabilitation Potential: Good - Anticipated Interventions Patient/Client Instruction: Educate patient on: Condition, Plan of Care For the Purpose of:: To decrease pain, To increase ROM, To improve muscle performance and motor function, To improve ability to perform ADL's, To increase tolerance to activity/condition/position, To improve ability of physical actions for home/community/work/leisure, To improve health of tissue, To decrease soft tissue restriction, To increase flexibility/ROM, To prevent re-injury, To improve tolerance to ADL's Therapeutic Exercise to Include: Strength training, Postural training, Flexibilty training, Active ROM, Scapular Strength/Stabilization For the Purpose of:: To decrease pain, To increase ROM, To improve muscle performance and motor function, To improve ability to perform ADL's, To increase tolerance to activity/condition/position, To improve ability of physical actions for home/community/work/leisure, To improve health of tissue, To decrease soft tissue restriction, To increase flexibility/ROM, To prevent re-injury Manual Therapy Techniques to Include: Mobilization, Soft tissue mobilization For the Purpose of:: To decrease pain, To increase ROM, To improve nutrient delivery to tissue, To increase oxygenation perfusion, To improve health of tissue, To decrease soft tissue restriction Thank you for the opportunity to evaluate your patient. For Medicare and Medicare HMO plans, please review the plan of care and approve it. It will need to be FAXED BACK to us at [phone] for Medicare purposes. For Medicare only, by signing this I certify the plan of care. Please let me know if there are questions or concerns regarding this plan of care. Physician Signature: Date:
--- NOTE | 2022-07-11 12:44 | HP.PT.NRP ---
BEHZAD MOYER was seen in my office for initial evaluation on 03/17/22. The following Plan of Care was established for this patient: Initial Frequency: 2x /Week Initial Duration: 4 Weeks Patient/Client Instruction: Educate patient on: Condition, Plan of Care For the Purpose of:: To decrease pain, To increase ROM, To improve muscle performance and motor function, To improve ability to perform ADL's, To increase tolerance to activity/condition/position, To improve ability of physical actions for home/community/work/leisure, To improve health of tissue, To decrease soft tissue restriction, To increase flexibility/ROM, To prevent re-injury, To improve tolerance to ADL's Therapeutic Exercise to Include: Strength training, Postural training, Flexibilty training, Active ROM, Scapular Strength/Stabilization For the Purpose of:: To decrease pain, To increase ROM, To improve muscle performance and motor function, To improve ability to perform ADL's, To increase tolerance to activity/condition/position, To improve ability of physical actions for home/community/work/leisure, To improve health of tissue, To decrease soft tissue restriction, To increase flexibility/ROM, To prevent re-injury Manual Therapy Techniques to Include: Mobilization, Soft tissue mobilization For the Purpose of:: To decrease pain, To increase ROM, To improve nutrient delivery to tissue, To increase oxygenation perfusion, To improve health of tissue, To decrease soft tissue restriction This patient was last seen in our office . Pertinent comments regarding their Physical therapy will appear below: Patient seen for PT for cervical pain for postural ex's and strengthening d/c to HEP doing better At this point I will be discontinuing this patient from physical therapy. I would be happy to see this patient again in the future if found appropriate by the physician. Thank you! Duke Kay, PT, Cert MDT, OCS Balance/Gait/Functional tests - Balance/Special Test Scores Oswestry Neck Score: 5
== END 2022-04-06 19:00 | disposition home or self-care (01) ==
LOC: PT 07:00
PROVIDERS: PCP Family Medicine; Referring Provider Family Medicine; Visit Provider Family Medicine
DX: S46.811D Strain of other muscles, fascia and tendons at shoulder and upper arm level, right arm, subsequent encounter (principal); S46.812D Strain of other muscles, fascia and tendons at shoulder and upper arm level, left arm, subsequent encounter; X58.XXXD Exposure to other specified factors, subsequent encounter
CPT/HCPCS: 97110; 97140; 97161

== ENCOUNTER → 2022-05-23 | Outpatient (CLI) | payer OTHER, SELFPAY ==
[2022-05-23 17:38] LABS: Mean Corp Hgb Conc 33.3 g/dL (32-36); Mean Corpuscular Hgb 33.4 pg (27.0-32.0); Mean Corpuscular Volume 100.3 fL (81-99); Mean Platelet Vol. 10.4 fl (6.2-12.0); Platelet Count 299 K/mm3 (150-450); RBC Distribution Width CV 13.2 % (11.6-14.6); RBC Distribution Width SD 48.7 fl (35.1-43.9); Red Blood Count 3.89 M/mm3 (4.2-5.4); White Blood Count 6.5 K/mm3 (4.4-11.0)
[2022-05-23 18:07] LABS: ALB/GLOB Ratio 1.2 RATIO (0.9-2.4); AST(SGOT) 23 U/L (15-37); Alanine Aminotransfer ALT/SGPT 30 U/L (13-56); Albumin, Serum 3.7 g/dL (3.2-5.0); Alkaline Phosphatase 48 U/L (45-117); Anion Gap 5 (5-15); BUN 11 mg/dL (7-18); BUN/Creat Ratio 14.4 RATIO (10-20); Calcium,Total 8.9 mg/dL (8.5-10.1); Chloride 106 mmol/L (98-107); Creatinine, Serum 0.76 mg/dL (0.55-1.02); EST Glomerular Filtration Rate 82 mL/min (>60); Est Glom Filt Rate - Afr Amer 99 mL/min (>60); Globulin 3.2 g/dL (2.2-4.2); Glucose 91 mg/dL (74-106); Potassium 3.8 mmol/L (3.5-5.1); Protein, Total 6.9 g/dL (6.4-8.2); Sodium Level 139 mmol/L (136-145)
[2022-05-23 18:08] LABS: Vitamin D,25 Hydroxy 46.6 ng/mL
== END | disposition home or self-care (01) ==
PROVIDERS: PCP Family Medicine; Referring Provider Family Medicine; Visit Provider Nurse Practitioner Family
DX: Z00.00 Encounter for general adult medical examination without abnormal findings (principal); E55.9 Vitamin D deficiency, unspecified
CPT/HCPCS: 36415; 80053; 82306; 85027

== ENCOUNTER → 2022-08-03 | Outpatient (CLI) | payer OTHER, SELFPAY ==
--- NOTE | 2022-08-03 07:07 | BI_ITS ---
MAMMOGRAPHY - BILATERAL SCREENING REASON FOR EXAM: Female, 62 years old. Routine annual screening examination. PERTINENT HISTORY: Personal history of breast cancer. Prior left lumpectomy and radiation treatment. Prior left stereotactic breast biopsy. Sister with breast cancer. TECHNIQUE: Digital bilateral breast michael (3D mammographic acquisition) in the CC and MLO projections. 2-D mediolateral oblique (MLO) and craniocaudad (CC) views of both breasts were obtained. CAD: Full Field Digital Mammography with Computer Added Detection was performed. COMPARISON: Comparison is made with prior study dated 07/07/2021. FINDINGS: Breast Composition: The breasts are heterogeneously dense, which may obscure small masses. There are no dominant masses or suspicious calcifications. The patient is status post lumpectomy in the deep upper portion of the left breast with resultant postoperative scarring. No new abnormality or clustered microcalcifications seen. No other significant abnormalities are identified. There has been no significant change since the prior study. BI/SCRN MAMM (CAD)W/MICHAEL BILAT IMPRESSION: Stable bilateral screening mammogram. Yearly follow-up mammogram recommended. (A) ASSESSMENT CATEGORY: BIRADS Category 2: Benign. A letter regarding these results will be sent to the patient by the facility within 30 days. Approximately 10% of breast cancers are not detected by mammography. A normal mammogram should not delay biopsy of a clinically suspicious abnormality. [id number] Electronically Signed: Poncho Beckwith MD at 9:01 EST ,
== END | disposition home or self-care (01) ==
PROVIDERS: PCP Family Medicine; Visit Provider Surgery
DX: Z12.31 Encounter for screening mammogram for malignant neoplasm of breast (principal)
CPT/HCPCS: 77063; 77067

== ENCOUNTER → 2022-10-09 | Outpatient (CLI) | payer OTHER, SELFPAY ==
[2022-10-09 12:09] LABS: Hematocrit 41.2 % (37-47); Hemoglobin 13.4 g/dL (12.0-15.0); Mean Corp Hgb Conc 32.5 g/dL (32-36); Mean Corpuscular Hgb 32.8 pg (27.0-32.0); Mean Corpuscular Volume 100.7 fL (81-99); Mean Platelet Vol. 10.8 fl (6.2-12.0); Platelet Count 312 K/mm3 (150-450); RBC Distribution Width CV 13.1 % (11.6-14.6); RBC Distribution Width SD 48.6 fl (35.1-43.9); Red Blood Count 4.09 M/mm3 (4.2-5.4); White Blood Count 5.2 K/mm3 (4.4-11.0)
[2022-10-09 12:31] LABS: Amylase 53 U/L (25-115); Anion Gap 5 (5-15); BUN 15 mg/dL (7-18); BUN/Creat Ratio 19.6 RATIO (10-20); Calcium,Total 9.2 mg/dL (8.5-10.1); Chloride 106 mmol/L (98-107); Creatinine, Serum 0.77 mg/dL (0.55-1.02); EST Glomerular Filtration Rate 81 mL/min (>60); Est Glom Filt Rate - Afr Amer 99 mL/min (>60); Glucose 95 mg/dL (74-106); Lipase 125 U/L (73-393); Potassium 3.8 mmol/L (3.5-5.1); Sodium Level 141 mmol/L (136-145)
== END | disposition home or self-care (01) ==
LOC: MFPLAB 09:59
PROVIDERS: PCP Family Medicine; Visit Provider Nurse Practitioner Family
DX: R19.7 Diarrhea, unspecified (principal)
CPT/HCPCS: 36415; 80048; 82150; 83690; 85027

== ENCOUNTER → 2022-10-31 | Outpatient (CLI) | payer OTHER, SELFPAY ==
--- NOTE | 2022-10-31 07:28 | US_ITS ---
HISTORY: Abdominal pain and diarrhea. TECHNIQUE: Mckinney scale and color doppler imaging was performed of the right upper quadrant. 91 images. COMPARISON: None. FINDINGS: LIVER: 15.5 cm in length. Increased echogenicity with fatty sparing adjacent to gallbladder fossa. No intrahepatic ductal dilatation. MAIN PORTAL VEIN: Patent with hepatopedal flow. COMMON BILE DUCT: 4 mm in diameter. GALLBLADDER: No gallstones. Small fold noted in the distended gallbladder. 2 mm wall thickness, within normal limits. No pericholecystic fluid. Sonographic Man sign negative. PANCREAS: Visualized proximal portion unremarkable. RIGHT KIDNEY: 9.7 cm in length with a cortical thickness of 1.2 cm. No hydronephrosis. Limited evaluation of the lower pole due to overlying bowel gas. US/Abdomen Limited IMPRESSION: No sonographic evidence of cholelithiasis. Hepatic steatosis. Limited evaluation of the right kidney and pancreas due to overlying bowel gas. Electronically Signed: Jammie Turner MD at 15:37 EDT ,
== END | disposition home or self-care (01) ==
LOC: US 07:26
PROVIDERS: PCP Family Medicine; Referring Provider Nurse Practitioner Family; Visit Provider Nurse Practitioner Family
DX: K76.0 Fatty (change of) liver, not elsewhere classified (principal); R10.9 Unspecified abdominal pain; R19.7 Diarrhea, unspecified
CPT/HCPCS: 76705

== ENCOUNTER → 2022-11-07 | Outpatient (CLI) | payer OTHER, SELFPAY ==
[2022-11-07 13:31] LABS: ALB/GLOB Ratio 1.3 RATIO (0.9-2.4); AST(SGOT) 23 U/L (15-37); Alanine Aminotransfer ALT/SGPT 32 U/L (13-56); Albumin, Serum 3.9 g/dL (3.2-5.0); Alkaline Phosphatase 48 U/L (45-117); Anion Gap 6 (5-15); BUN 12 mg/dL (7-18); BUN/Creat Ratio 15.8 RATIO (10-20); Calcium,Total 9.1 mg/dL (8.5-10.1); Chloride 107 mmol/L (98-107); Creatinine, Serum 0.76 mg/dL (0.55-1.02); EST Glomerular Filtration Rate 82 mL/min (>60); Est Glom Filt Rate - Afr Amer 99 mL/min (>60); Glucose 96 mg/dL (74-106); Potassium 4.1 mmol/L (3.5-5.1); Protein, Total 6.9 g/dL (6.4-8.2); Sodium Level 139 mmol/L (136-145)
== END | disposition home or self-care (01) ==
LOC: MFPLAB 10:43
PROVIDERS: PCP Family Medicine; Visit Provider Nurse Practitioner Family
DX: K76.0 Fatty (change of) liver, not elsewhere classified (principal)
CPT/HCPCS: 36415; 80053

== ENCOUNTER 2022-11-30 13:31 | Outpatient (RCR) | payer OTHER, SELFPAY | END 2022-12-20 23:59 | LOC: NS 13:31 | PROVIDERS: PCP Family Medicine; Referring Provider Nurse Practitioner Family; Visit Provider Nurse Practitioner Family | DX: Z71.3 Dietary counseling and surveillance (principal); E66.3 Overweight; Z68.28 Body mass index [BMI] 28.0-28.9, adult; K76.0 Fatty (change of) liver, not elsewhere classified | CPT/HCPCS: 97802 ==

== ENCOUNTER 2022-12-27 15:18 | Outpatient (RCR) | payer OTHER, SELFPAY | END 2023-01-19 23:59 | LOC: NS 15:18 | PROVIDERS: PCP Family Medicine; Referring Provider Nurse Practitioner Family; Visit Provider Nurse Practitioner Family | DX: Z71.3 Dietary counseling and surveillance (principal); E66.3 Overweight; Z68.28 Body mass index [BMI] 28.0-28.9, adult; K76.0 Fatty (change of) liver, not elsewhere classified | CPT/HCPCS: 97803 ==

== ENCOUNTER 2023-02-27 15:11 | Outpatient (RCR) | payer OTHER, SELFPAY | END 2023-03-22 23:59 | LOC: NS 15:11 | PROVIDERS: PCP Family Medicine; Referring Provider Nurse Practitioner Family; Visit Provider Nurse Practitioner Family | DX: Z71.3 Dietary counseling and surveillance (principal); E66.3 Overweight; Z68.28 Body mass index [BMI] 28.0-28.9, adult | CPT/HCPCS: 97803 ==

== ENCOUNTER → 2023-08-08 | Outpatient (CLI) | payer OTHER, SELFPAY ==
--- NOTE | 2023-08-08 07:03 | BI_ITS ---
MAMMOGRAPHY - BILATERAL SCREENING REASON FOR EXAM: Female, 63 years old. Routine annual screening examination. PERTINENT HISTORY: Personal history of breast cancer. Prior left lumpectomy and radiation treatment. TECHNIQUE: Digital bilateral breast michael (3D mammographic acquisition) in the CC and MLO projections. 2-D mediolateral oblique (MLO) and craniocaudad (CC) views of both breasts were obtained. CAD: Full Field Digital Mammography with Computer Added Detection was performed. COMPARISON: Comparison is made with prior study dated January 31, 2023 and July 07 FINDINGS: Breast Composition: The breasts are heterogeneously dense, which may obscure small masses. There are no dominant masses or suspicious calcifications. The patient is status post lumpectomy in the deep upper central portion of the left breast with resultant postoperative scarring. No other significant abnormalities are identified. There has been no significant change since the prior study. BI/SCRN MAMM (CAD)W/MICHAEL BILAT IMPRESSION: Stable bilateral screening mammogram. Yearly follow-up mammogram recommended. (A) ASSESSMENT CATEGORY: BIRADS Category 2: Benign. A letter regarding these results will be sent to the patient by the facility within 30 days. Approximately 10% of breast cancers are not detected by mammography. A normal mammogram should not delay biopsy of a clinically suspicious abnormality. [id number] Electronically Signed: Poncho Beckwith MD at 8:29 EST ,
--- OUTSIDE RECORDS SUMMARY | 2023-08-08 07:05 | XMS RPT_ITS | CCD ---
Author Name Unknown Address [address] [place] [address] Organization [facility] Care Team Providers Care Obgyn Nurse Name Role Phone Blue Novak Primary Care Provider Fahad WORRELL MD, Asher Unavailable Fahad WORRELL MD, Asher Unavailable [phone] Kalani Slaughter (Pss) Primary Care Provider Vandana vailable BLUE NOVAK Primary Care Unavailable TOR FORD Attending Unavailable TOR FORD Referring Unavailable BLUE NOVAK Primary Care Unavailable BLUE NOVAK Primary Care Unavailable BLUE NOVAK Primary Care Unavailable TOR FORD Attending Unavailable TOR FORD Referring Unavailable BLUE NOVAK Primary Care Unavailable ZURI CAMARA Attending Unavailable ZURI CAMARA Referring Unavailable BLUE NOVAK Primary Care Unavailable Allergies Allergy Classification Reported Allergen(s) Allergy Type Date of Onset Reaction(s) Facility (8 sources) Sulfonamides (Antibiotic); Translations: [SULFA (SULFONAMIDE ANTIBIOTICS)] Drug Allergy 04-22-2018 Rash [facility] Medications Current Medications Medication Drug Class(es) Dates Sig (Normalized) Sig (Original) cephalexin 500 mg oral capsule (1 source) Cephalosporin Antibacterial Start: 04-19-2023 End: 04-26-2023 take 1 capsule by mouth twice daily cephALEXin (KEFLEX) 500 mg capsule Take 1 capsule by mouth twice daily for 7 days. 14 capsule 0 04/19/2023 04/26/2023 Active Completed/Discontinued Medications Medication Drug Class(es) Dates Sig (Normalized) Sig (Original) biotin 5 mg disintegrating oral tablet (7 sources) take 1 tablet by mouth once daily biotin 5,000 mcg ODT Take 1 tablet by mouth once daily. 0 Active Problems Active Problems Problem Classification Problem Date Documented Da te Episodic/Chronic Cancer of breast (9 sources) Intraductal carcinoma in situ of left breast; Translations: [Intraductal carcinoma in situ of left breast] Onset: 09-27-2020 09-27-2020 Chronic Genitourinary symptoms and ill-defined conditions (2 sources) Increased frequency of urination; Translations: [Frequency of micturition] Episodic Other infections; including parasitic (1 source) Infestation by Sarcoptes scabiei cyrus hominis; Translations: [Scabies] Episodic Other liver diseases (2 sources) Steatosis of liver; Translations: [Fatty (change of) liver, not elsewhere classified] Onset: 11-12-2022 12-06-2022 Chronic Past or Other Problems Problem Classification Problem Date Documented Date Episodic/Chronic Residual codes; unclassified (2 sources) History of colonoscopy; Translations: [Other specified postprocedural states] Onset: 12-06-2022 12-06-2022 Episodic Residual codes; unclassified (2 sources) Family history of breast cancer; Translations: [Family history of malignant neoplasm of breast] Onset: 12-06-2022 12-06-2022 Episodic Results Test Name Value Interpretation Reference Range Facil ity Vital Signs Date Time Vital Sign Value Performing Clinician Deneen jeffrey 04-03-2023 13:46-0400 Body height 173.4 cm Tor Ford APRN.CNP Work Phone: [facility] 04-03-2023 13:46-0400 Body temperature 97.5 [degF] Tor Ford APRN.CNP Work Phone: [facility] 04-03-2023 13:46-0400 Body weight 86.18 kg Tor Ford APRN.CNP Work Phone: [facility] 04-03-2023 13:46-0400 Diastolic blood pressure 69 mm[Hg] Tor Ford APRN.CNP Work Phone: [facility] 04-03-2023 13:46-0400 Heart rate 91 /min Tor Ford APRN.CNP Work Phone: [facility] 04-03-2023 13:46-0400 SaO2% (BldA) [Mass fraction] 100 % Tor Ford NATUROPATH.COMMERCIAL LEASE ADMINISTRATOR Work Phone: [facility] 04-03-2023 13:46-0400 Systolic blood pressure 105 mm[Hg] [place] Ford NATUROPATH.COMMERCIAL LEASE ADMINISTRATOR Work Phone: [facility] 09-02-2022 08:21-0500 Body temperature 98.8 [degF] Deanna Bennett NATUROPATH.COMMERCIAL LEASE ADMINISTRATOR Work Phone: [facility] 09-02-2022 08:21-0500 Body weight 85.73 kg Deanna Bennett NATUROPATH.COMMERCIAL LEASE ADMINISTRATOR Work Phone: [facility] 09-02-2022 08:21-0500 Diastolic blood pressure 74 mm[Hg] Deanna Bennett NATUROPATH.COMMERCIAL LEASE ADMINISTRATOR Work Phone: [facility] 09-02-2022 08:21-0500 Heart rate 98 /min Deanna Bennett NATUROPATH.COMMERCIAL LEASE ADMINISTRATOR Work Phone: [facility] 09-02-2022 08:21-0500 Respiratory rate 16 /min Deanna Bennett NATUROPATH.COMMERCIAL LEASE ADMINISTRATOR Work Phone: [facility] 09-02-2022 08:21-0500 SaO2% (BldA) [Mass fraction] 96 % Deanna Bennett NATUROPATH.COMMERCIAL LEASE ADMINISTRATOR Work Phone: [facility] 09-02-2022 08:21-0500 Systolic blood pressure 118 mm[Hg] Deanna Bennett NATUROPATH.COMMERCIAL LEASE ADMINISTRATOR Work Phone: [facility] 05-08-2022 11:37-0400 Body temperature 98.29 [degF] Chitra Wall NATUROPATH.COMMERCIAL LEASE ADMINISTRATOR Work Phone: [facility] 05-08-2022 11:37-0400 Body weight 85.28 kg Chitra Wall NATUROPATH.COMMERCIAL LEASE ADMINISTRATOR Work Phone: [facility] 05-08-2022 11:37-0400 Diastolic blood pressure 70 mm[Hg] Chitra Wall NATUROPATH.COMMERCIAL LEASE ADMINISTRATOR Work Phone: [facility] 05-08-2022 11:37-0400 Heart rate 98 /min Chitra Wall APRN.COMMERCIAL LEASE ADMINISTRATOR Work Phone: [facility] 05-08-2022 11:37-0400 Respiratory rate 18 /min Chitra Wall APRN.COMMERCIAL LEASE ADMINISTRATOR Work Phone: [facility] 05-08-2022 11:37-0400 SaO2% (BldA) [Mass fraction] 97 % Chitra Wall APRN.COMMERCIAL LEASE ADMINISTRATOR Work Phone: [facility] 05-08-2022 11:37-0400 Systolic blood pressure 122 mm[Hg] Chitra Wall APRN.COMMERCIAL LEASE ADMINISTRATOR Work Phone: [facility] 02-17-2022 18:15-0400 Body temperature 98.6 [degF] Any Athy PA-C Work Phone: [facility] 02-17-2022 18:15-0400 Body weight 84.73 kg Any Athy PA-C Work Phone: [facility] 02-17-2022 18:15-0400 Diastolic blood pressure 66 mm[Hg] Any Athy PA-C Work Phone: [facility] 02-17-2022 18:15-0400 Heart rate 96 /min Any Athy PA-C Work Phone: [facility] 02-17-2022 18:15-0400 Respiratory rate 18 /min Any Athy PA-C Work Phone: [facility] 02-17-2022 18:15-0400 SaO2% (BldA) [Mass fraction] 99 % Any Athy PA-C Work Phone: [facility] 02-17-2022 18:15-0400 Systolic blood pressure 128 mm[Hg] Any Athy PA-C Work Phone: [facility] 02-14-2022 13:50-0400 Body height 175 cm Tor Ford APRN.COMMERCIAL LEASE ADMINISTRATOR Work Phone: [facility] 02-14-2022 13:50-0400 Body temperature 99 [degF] Tor Givensenter NATUROPATH.COMMERCIAL LEASE ADMINISTRATOR Work Phone: [facility] 02-14-2022 13:50-0400 Body weight 85.05 kg Tor Ford NATUROPATH.COMMERCIAL LEASE ADMINISTRATOR Work Phone: [facility] 02-14-2022 13:50-0400 Diastolic blood pressure 70 mm[Hg] Tor Ford NATUROPATH.COMMERCIAL LEASE ADMINISTRATOR Work Phone: [facility] 02-14-2022 13:50-0400 Heart rate 95 /min Tor Givensenter NATUROPATH.COMMERCIAL LEASE ADMINISTRATOR Work Phone: [facility] 02-14-2022 13:50-0400 SaO2% (BldA) [Mass fraction] 94 % Tor Ford NATUROPATH.COMMERCIAL LEASE ADMINISTRATOR Work Phone: [facility] 02-14-2022 13:50-0400 Systolic blood pressure 109 mm[Hg] Tor Givensenter NATUROPATH.COMMERCIAL LEASE ADMINISTRATOR Work Phone: [facility] 11-17-2021 15:51-0400 Body height 177.8 cm Zuri [place] NATUROPATH.COMMERCIAL LEASE ADMINISTRATOR Work Phone: [facility] 11-17-2021 15:51-0400 Body weight 85 kg Zuri Jax NATUROPATH.COMMERCIAL LEASE ADMINISTRATOR Work Phone: [facility] 11-17-2021 15:51-0400 Diastolic blood pressure 72 mm[Hg] Zuri [place] NATUROPATH.COMMERCIAL LEASE ADMINISTRATOR Work Phone: [facility] 11-17-2021 15:51-0400 Systolic blood pressure 120 mm[Hg] Zuri [place] NATUROPATH.COMMERCIAL LEASE ADMINISTRATOR Work Phone: [facility] Encounters Encounter Date Encounter Type Care Provider Facility Start: 04-20-2023 Telephone encounter Gretchen Foster NATUROPATH.COMMERCIAL LEASE ADMINISTRATOR Work Phone: [facility] Procedures Date Procedure Procedure Detail Performing Clinician Start: 09-02-2022 Urnls dip stick/tabl et rgnt auto w/o microscopy Deanna Bennett NATUROPATH.COMMERCIAL LEASE ADMINISTRATOR Work Phone: Start: 05-08-2022 Urnls dip stick/tabl et rgnt auto w/o microscopy Any Montano PA-C Work Phone: Start: 02-14-2022 Adult depression screening assessment Tor Ford NATUROPATH.COMMERCIAL LEASE ADMINISTRATOR Work Phone: Start: 08-13-2021 Adult depression screening assessment Zurikaryn HuangJax NATUROPATH.COMMERCIAL LEASE ADMINISTRATOR Work Phone: Plan of Treatment Date Care Activity Detail Author Start: 10-07-2025 HPV TESTING HPV TESTING [facility] Start: 10-07-2025 PAP TESTING PAP TESTING [facility] Start: 03-23-2023 Influenza vaccination Influenza Vaccine (#1) [facility] Start: 02-14-2023 Adult depression screening assessment DEPRESSION SCREENING [facility] Start: 08-13-2022 Adult depression screening assessment DEPRESSION SCREENING [facility] Start: 07-23-2022 DEPRESSION ASSESSMENT DEPRESSION ASSESSMENT [facility] Start: 03-23-2022 Influenza vaccination INFLUENZA (#1) [facility] Start: 11-12-2021 COVID-19 VACCINE (4 - Booster for Moderna series) COVID-19 VACCINE (4 - Booster for Moderna series) [facility] Start: 09-08-2021 COVID-19 VACCINE (4 - Booster for Moderna series) COVID-19 VACCINE (4 - Booster for Moderna series) [facility] Start: 07-23-2021 DEPRESSION ASSESSMENT DEPRESSION ASSESSMENT [facility] Start: 2011 SHINGRIX VACCINE (1 of 2) SHINGRIX VACCINE (1 of 2) [facility] Start: 2006 COLOGUARD (FIT-DNA) COLOGUARD (FIT-DNA) [facility] Start: 2006 Colonoscopy COLONOSCOPY [facility] Start: 2006 COLORECTAL CANCER SCREENING COLORECTAL CANCER SCREENING [facility] Start: [address] COLONOGRAPHY [facility] Start: 2006 DIABETES SCREEN DIABETES SCREEN [facility] Start: 2006 Diabetes Screening Diabetes Screening [facility] Start: 2006 FECAL OCCULT BLOOD FECAL OCCULT BLOOD [facility] Start: 2006 Lipid 1996 panel - Serum or Plasma Lipid Screening [facility] Start: 2006 LIPID SCREEN LIPID SCREEN [facility] Start: 2006 SIGMOIDOSCOPY SIGMOIDOSCOPY [facility] Start: 2001 Mammography [facility] Start: 1980 Urine microalbumin profile [facility] Start: 1979 HEPATITIS C SCREENING HEPATITIS C SCREENING [facility] Start: 1979 HIV SCREENING HIV SCREENING [facility] Bacteria identified in Urine by Culture URINE CULTURE Microbiology Routine Urinary frequency 05/08/2022 11:51 AM EDT [facility] Work Phone: Bacteria identified in Urine by Culture URINE CULTURE Microbiology Routine Dysuria Ordered: 09/02/2022 [facility] Work Phone: Immunizations Immunization Date Immunization Notes Care Provider Sahil burk 06-01-2022 influenza virus vacc ine, unspecified formulation Tor Ford NATUROPATH.COMMERCIAL LEASE ADMINISTRATOR Work Phone: [facility] 04-05-2021 influenza, seasonal, injectable Zuri Jax NATUROPATH.COMMERCIAL LEASE ADMINISTRATOR Work Phone: [facility] Payers Date Payer Category Payer Unknown MMO MMO [employer] [id number] 2021-Present [phone] [address] [place] [address] PPO [id number] 2021 Unknown [id number] 2021 Unknown [id number] Social History Date Type Detail Facility Start: 04-22-2018 End: 05-08-2022 Tobacco smoking status NHIS Never smoked tobacco [facility] Start: 04-22-2018 End: 05-08-2022 Tobacco use and exposure Smokeless tobacco non-user [facility] Start: 11-17-2021 End: 04-19-2023 Alcohol intake Lifetime non-drinker (finding) [facility] Start: 08-09-2020 History SDOH Alcohol Frequency 1 [facility] Start: 1960 Sex Assigned At Female [facility] Start: 11-07-2021 End: 05-08-2022 Exposure to SARS-CoV-2 (event) Not sure [facility] Work Phone: Start: 08-09-2020 End: 12-06-2022 History of Social function [facility] Start: 08-09-2020 End: 12-06-2022 Alcohol Use Disorder Identification Test - Consumption [AUDIT-C] [facility] How often to you hav e a drink containing alcohol? Never [facility] Average Number of Drinks Not on file [facility] Start: 09-14-2020 Gender identity Identifies as female gender (finding) [facility] Start: 09-14-2020 Sexual orientation Heterosexual (finding) [facility] Clinical Notes 11-17-2021 to 04-20-2023 Telephone Encounter - Tessa Jacques LPN - 04/20/2023 12:12 PM EDTTelephone Encounter - Tessa Jacques LPN - 04/20/2023 12:10 PM EDTCTor song APRN.COMMERCIAL LEASE ADMINISTRATOR - 04/03/2023 1:43 PM EDT Note Date & Type Note Facility 04-20-2023 Miscellaneous Notes Patient given results and verbalized understanding of instructions given. Tessa Jacques LPN ----- Message from Gretchen Moise APRN.CRISTINO sent at 04/20/2023 11:19 AM EDT ----- Urine culture did not show clear evidence of infection, however it appears sample may have been contaminated with skin bacteria during collection. She may continue to take antibiotic if it has been helpful. Recommend follow up with PCP to ensure hematuria has resolved. Gretchen Moise CNP documented in this encounter [facility] 04-19-2023 Note HNO ID: [id number] Author: Pablo Magana APRN.CRISTINO Service: ? Author Type: Nurse Practitioner Type: Progress Notes Filed: 04/19/2023 10:13 AM Note Text: Subjective HPI A nontoxic appearing female presents to urgent care with chief complaint of possible UTI. Duration of symptoms 2 days. Associated symptoms dysuria, frequency, and urgency. Patient has history of UTIs in past with similar signs and symptoms. Last UTI in August of this year. Positive urine culture for E. coli. Pansensitive. Patient states the use of Pyridium symptom management good success. Patient states pain is a 2/10. Patient denies any fevers, flank pain, abdominal pain, nausea, vomiting, vaginal discharge, or urological abnormalities. Past medical history prescription medication use allergies reviewed. .Patient presents with: Urinary Problem: Burning, frequency, x 2 days PAST MEDICAL HISTORY Diagnosis Date Fatty liver History of left breast cancer PAST SURGICAL HISTORY Procedure Laterality Date PAST SURGICAL HISTORY OF [facility] PAST SURGICAL HISTORY OF cataract LANDR 2009 PAST SURGICAL HISTORY OF skin graft finger as a child PAST SURGICAL HISTORY OF 07/26/2020 lumpectomy ALLERGIES Sulfa (Sulfonamide Antibiotics) MEDICATIONS tamoxifen (NOLVADEX) 20 mg tablet Take 1 tablet (20 mg) by mouth once daily. MULTIVITAMIN ORAL Take 1 tablet by mouth once daily. cholecalciferol (VITAMIN D3) 1,000 unit tab tablet Take 1,000 Units by mouth once daily. biotin 5,000 mcg ODT Take 1 tablet by mouth once daily. FAMILY HISTORY Problem Relation Age of Onset Diabetes Father Kidney failure Father Breast Cancer Sister 35 at age 39 Social History Tobacco Use Smoking status: Never Smokeless tobacco: Never Vaping Use Vaping Use: Never used Substance Use Topics Alcohol use: Never Drug use: Never BP 128/79 Pulse 87 Temp 36.9 ?C (98.5 ?F) Resp 18 Wt 86.1 kg (189 lb 12.8 oz) SpO2 98% BMI 28.65 kg/m? Review of Systems Constitutional: Negative for chills, fever and malaise/fatigue. HENT: Negative for congestion, ear discharge, ear pain, sinus pain and sore throat. Eyes: Negative for blurred vision, pain, discharge and redness. Respiratory: Negative for cough, hemoptysis, sputum production, shortness of breath, wheezing and stridor. Cardiovascular: Negative for chest pain. Gastrointestinal: Negative for abdominal pain, diarrhea, nausea and vomiting. Genitourinary: Positive for dysuria, frequency and urgency. Negative for flank pain and hematuria. Musculoskeletal: Negative for myalgias. Skin: Negative for itching and rash. Neurological: Negative for dizziness and headaches. Objective Physical Exam Constitutional: General: She is not in acute distress. Appearance: She is not toxic-appearing or diaphoretic. HENT: Head: Normocephalic. Right Ear: Hearing normal. Left Ear: Hearing normal. Eyes: Pupils: Pupils are equal, round, and reactive to light. Cardiovascular: Rate and Rhythm: Normal rate and regular rhythm. Pulses: Normal pulses. Pulmonary: Effort: Pulmonary effort is normal. No respiratory distress. Breath sounds: Normal breath sounds. Abdominal: General: Bowel sounds are normal. There is no distension. Palpations: Abdomen is soft. Abdomen is not rigid. Tenderness: There is no abdominal tenderness. There is no right CVA tenderness, left CVA tenderness, guarding or rebound. Negative signs include Man's sign and McBurney's sign. Musculoskeletal: Cervical back: Normal range of motion. Lymphadenopathy: Head: Right side of head: No submental, submandibular, tonsillar, preauricular, posterior auricular or occipital adenopathy. Left side of head: No submental, submandibular, tonsillar, preauricular, posterior auricular or occipital adenopathy. Neurological: General: No focal deficit present. Mental Status: She is alert and oriented to person, place, and time. ASSESSMENT/PLAN: 1. Burning with urination - ICD9: 788.1, ICD10: R30.0 - UA DIP, URINE (POC) - URINE CULTURE Patient's presenting symptoms and history of UTI we will treat for acute cystitis. Placed on Keflex. Urine culture ordered. Results pending. Treat according to culture results. Patient was educated on supportive therapies. Patient will follow up with primary care provider as needed. Patient was instructed to immediately proceed to emergency room for any new, worsening, or symptoms lasting longer than anticipated. The patient's clinical presentation is otherwise unremarkable at this time. Based on exam and clinical finding, the patient is stable for discharge. Plan of care was discussed with patient. Patient verbalizes understanding and agrees to plan of care. This note was generated using Short Fuze software. It may contain errors in wording, punctuation, or spelling. Pablo Magana APRN.[facility] 04-03-2023 Note HNO ID: [id number] Author: Tor Ford APRN.COMMERCIAL LEASE ADMINISTRATOR Service: ? Author Type: Nurse Practitioner Type: Progress Notes Filed: 04/03/2023 2:33 PM Note Text: Chief Complaint Patient presents with: Established Patient HPI: Barbara Wright is a 62 year old female who presents here today for follow up DCIS. Per Dr. Cox's previous note: H/o HTN. Pathology: MICROSCOPIC DIAGNOSIS Left breast, stereotactic core biopsy: Ductal carcinoma in situ with the following characteristics: Architectural Pattern - solid and cribriform. Nuclear Grade - 3 Necrosis - present (central comedo necrosis). Calcifications - present. ER (clone [id number]) positive (>95%, strong intensity) MT (clone 16/1E2) positive (71%, low to moderate intensity) Her-2Neu (clone [id number]) positive (2-3+) Pathology: MICROSCOPIC DIAGNOSIS Left breast, lumpectomy wire localization: Ductal carcinoma in situ. See cancer summary in the comment section. COMMENT DUCTAL CARCINOMA IN SITU SUMMARY: Procedure - excision (lumpectomy with wire localization) Specimen laterality - left Tumor site - not specified Ductal carcinoma in situ: Size (extent) of DCIS - 0.6 x 0.5 cm (measured microscopically) Number of blocks with DCIS - 3 Number of blocks examined - 12 Histologic type - ductal carcinoma in situ Architectural pattern - solid and comedo Nuclear grade - grade 2-3 (intermediate to high) Necrosis - present, central (expansive ?comedo? necrosis) Margins - margins uninvolved by ductal carcinoma in situ. The ductal carcinoma in situ is 1.3 cm away from the anterior margin and 1.7 cm away from the second closest superior margin. Regional lymph nodes - no lymph nodes submitted or found. Distant metastasis - not applicable Additional pathologic findings - fibrocystic changes, adenosis and intraductal hyperplasia without atypia. RADIATION:08/30/20 - 09/24/20 Current therapy:Tamoxifen Began 10/06/20 No new concerns today. Appetite: Good. Energy level: Fine. Denies fevers or recent illness. Resp:denies cough or sob Cardiac:denies chest pain/palpitations GI:denies abd pain, n/v, moving bowels regularly :denies dysuria/hematuria Extrem:denies pain to back/bones/joints, although has some leg cramps-had prior to tamoxifen Endo:denies hot flashes-had prior in perimenopausal period Neuro:denies symptoms of neuropathy Skin:denies rashes/lesions Heme:denies bleeding, up to date on TEST ENGINEERING INTERN exam-next due November 2023 The ROS is otherwise negative. Past medical history, appointments, medications, allergies reviewed. No changes. EXAM: BP 105/69 Pulse 91 Temp 36.4 ?C (97.5 ?F) (Temporal) Ht 173.4 cm (5' 8.25 ) Wt 86.2 kg (190 lb) SpO2 100% BMI 28.68 kg/m? APPEARANCE Well appearing, alert, in no acute distress, well-hydrated, well nourished. HEART RRR with normal S1 and S2, no murmurs LUNG clear to auscultation BREAST FEMALE no mass/nodule b/l, L scar to upper/radiation changes LYMPH NODES No cervical lymphadenopathy, No supraclavicular lymphadenopathy, and No axillary lymphadenopathy. ABDOMEN bowel sounds normoactive, soft, non-tender EXTREMITIES No edema NEURO Awake, alert and oriented x 3, Normal gait, and No involuntary motions. SKIN Skin color, texture, turgor normal, no suspicious rashes or lesions ASSESSMENT/PLAN: 1. 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 - No concerning findings on exam. - Tolerating tamoxifen well. - Continue tamoxifen. Rx done. - Mammogram due 2022-done at [facility] ordered by Dr. Montero. - Follow up in 6 months. - Pt. aware to call office with any questions/concerns. The patient indicates understanding of these issues and agrees with the plan. All documentation from previous visit of 08/18/22-Dr. Cox/myself was copied and pasted, documentation has been reviewed and edited as necessary for today's visit. Tor Ford APRN.[facility] 04-03-2023 History of Presen t illness Narrative Chief Complaint Patient presents with: Established Patient HPI: Barbara Wright is a 62 year old female who presents here today for follow up DCIS. Per Dr. Masci's previous note: H/o HTN. Pathology: MICROSCOPIC DIAGNOSIS Left breast, stereotactic core biopsy: Ductal carcinoma in situ with the following characteristics: Architectural Pattern - solid and cribriform. Nuclear Grade - 3 Necrosis - present (central comedo necrosis). Calcifications - present. ER (clone [id number]) positive (>95%, strong intensity) MT (clone 16/1E2) positive (71%, low to moderate intensity) Her-2Neu (clone CB11) positive (2-3+) Pathology: MICROSCOPIC DIAGNOSIS Left breast, lumpectomy wire localization: Ductal carcinoma in situ. See cancer summary in the comment section. COMMENT DUCTAL CARCINOMA IN SITU SUMMARY: Procedure - excision (lumpectomy with wire localization) Specimen laterality - left Tumor site - not specified Ductal carcinoma in situ: Size (extent) of DCIS - 0.6 x 0.5 cm (measured microscopically) Number of blocks with DCIS - 3 Number of blocks examined - 12 Histologic type - ductal carcinoma in situ Architectural pattern - solid and comedo Nuclear grade - grade 2-3 (intermediate to high) Necrosis - present, central (expansive comedo necrosis) Margins - margins uninvolved by ductal carcinoma in situ. The ductal carcinoma in situ is 1.3 cm away from the anterior margin and 1.7 cm away from the second closest superior margin. Regional lymph nodes - no lymph nodes submitted or found. Distant metastasis - not applicable Additional pathologic findings - fibrocystic changes, adenosis and intraductal hyperplasia without atypia. RADIATION:08/30/20 - 09/24/20 Current therapy:Tamoxifen Began 10/06/20 No new concerns today. Appetite: Good. Energy level: Fine. Denies fevers or recent illness. Resp:denies cough or sob Cardiac:denies chest pain/palpitations GI:denies abd pain, n/v, moving bowels regularly :denies dysuria/hematuria Extrem:denies pain to back/bones/joints, although has some leg cramps-had prior to tamoxifen Endo:denies hot flashes-had prior in perimenopausal period Neuro:denies symptoms of neuropathy Skin:denies rashes/lesions Heme:denies bleeding, up to date on TEST ENGINE[employer] exam-next due November 2023 The ROS is otherwise negative. Past medical history, appointments, medications, allergies reviewed. No changes. EXAM: BP 105/69 Pulse 91 Temp 36.4 C (97.5 F) (Temporal) Ht 173.4 cm (5' 8.25 ) Wt 86.2 kg (190 lb) SpO2 100% BMI 28.68 kg/m APPEARANCE Well appearing, alert, in no acute distress, well-hydrated, well nourished. HEART RRR with normal S1 and S2, no murmurs LUNG clear to auscultation BREAST FEMALE no mass/nodule b/l, L scar to upper/radiation changes LYMPH NODES No cervical lymphadenopathy, No supraclavicular lymphadenopathy, and No axillary lymphadenopathy. ABDOMEN bowel sounds normoactive, soft, non-tender EXTREMITIES No edema NEURO Awake, alert and oriented x 3, Normal gait, and No involuntary motions. SKIN Skin color, texture, turgor normal, no suspicious rashes or lesions ASSESSMENT/PLAN: 1. 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 - No concerning findings on exam. - Tolerating tamoxifen well. - Continue tamoxifen. Rx done. - Mammogram due 2022-done at [facility] ordered by Dr. Montero. - Follow up in 6 months. - Pt. aware to call office with any questions/concerns. The patient indicates understanding of these issues and agrees with the plan. All documentation from previous visit of 08/18/22-Dr. Cox/myself was copied and pasted, documentation has been reviewed and edited as necessary for today's visit. Tor Ford APRN.CRISTINO documented in this encounter [facility] 12-06-2022 Note HNO ID: [id number] Author: Zuri Camara APRN.CNP Service: ? Author Type: Nurse Practitioner Type: Progress Notes Filed: 12/06/2022 7:36 AM Note Text: Barbara is a 62 year old who presents for an annual gynecologic exam without complaints. Postmenopausal: Yes since age [age] HRT use: No. Last Pap: 10/13/2020 normal HPV: 10/12/2020 negative History of abnormal pap: Yes Last mammogram: 2021 normal @[facility] History of abnormal mammogram: Yes left DCIS Jun 2020 Sexually active: Yes Pain with intercourse: No Postcoital bleeding: No Hot flashes: No Night sweats: No Vaginal dryness: No OB History T0 L3 SAB0 IAB0 Ectopic0 Multiple0 Live Births0 Traveling Sales Representative History LMP: Premenopausal Age at Menarche: Age at First : Age at Menopause: Traveling Sales Representative History Comments: Sexual Activity: Yes; Male Contraception: Vasectomy PAST MEDICAL HISTORY Diagnosis Date Fatty liver History of left breast cancer PAST SURGICAL HISTORY Procedure Laterality Date PAST SURGICAL HISTORY OF 1989 [facility] PAST SURGICAL HISTORY OF cataract LANDR 2006, 2009 PAST SURGICAL HISTORY OF skin graft finger as a child PAST SURGICAL HISTORY OF 07/26/2020 lumpectomy FAMILY HISTORY Problem Relation Age of Onset Diabetes Father Kidney failure Father Breast Cancer Sister 35 at age 39 SOCIAL HISTORY Social History Tobacco Use Smoking status: Never Smokeless tobacco: Never Vaping Use Vaping Use: Never used Substance Use Topics Alcohol use: Never Drug use: Never REVIEW OF SYSTEMS Abdomen: No abdominal pain, nausea, vomiting or constipation. No bloating, early satiety, indigestion, or increased flatulence.+diarrhea Bladder: No dysuria, gross hematuria, urinary frequency, urinary urgency, + some incontinence Breast: No breast lumps, nipple d/c, overlying skin changes, redness or skin retraction Allergies and current medication updated:Yes EXAM: Ht 5' 9.5 (1.77m) Wt 188 lb 12.8 oz (85.6kg) BMI 27.49 kg/(m2). GENERAL: pleasant, female in no apparent distress HEENT: Normocephalic, atraumatic, mucus membranes moist, and no lesions NECK: Supple, full range of motion, no adenopathy, and thyroid normal DERMATOLOGY: Normal, without lesions, non-icteric, and non-hirsute BREAST: soft, non-tender, symmetric, no dominant mass, normal nipple-areolar complex, no lymphadenopathy, and no nipple discharge CHEST: Normal inspiratory effort ABDOMEN: soft, non-tender, and no masses PELVIC: external genitalia normal, normal Bartholin's glands, urethra, Gates's glands, no vulvar lesions, no cervical lesions, physiologic discharge present, normal appearing perineal body and perianal region, cystocele 2nd degree BIMANUAL: uterus normal size, shape and consistency, no adnexal masses, and non-tender RECTOVAGINAL: deferred. NEURO: alert and oriented x3,exam grossly non-focal EXTREMITIES: normal ASSESSMENT/PLAN: 1) Health maintenance: Pap/HPV up to date. Mammogram up to date Nutrition, exercise and routine health maintenance exams reviewed. Calcium/Vitamin D supplementation information provided. Colon cancer screening: followed by PCP 2) Follow up one year or sooner as needed Zuri Camara APRN.CNP [facility] 09-02-2022 Note HNO ID: [id number] Author: Deanna Bennett APRN.CRISTINO Service: ? Author Type: Nurse Practitioner Type: Progress Notes Filed: 09/02/2022 8:54 AM Note Text: This note was created using Avatripriter. Subjective Barbara Wright is a 62 year old female. 62 year old female with PMH left breast CA (on Tomaxifin) presents for possible UTI. +frequency +urgency +burning +suprapubic pressure +pink tinge when wiping. Denies abdominal pain. Denies flank pain Denies N/V/D Denies skin rash or lesions. Denies vaginal bleeding. Denies vaginal discharge. Recently sexually active. Denies concerns for STIs. The history is provided by the patient. No professor of languages was used. UTI This is a new problem. The current episode started yesterday. The problem occurs every urination. The problem has been gradually worsening. The quality of the pain is described as burning. The pain is at a severity of 5/10. The pain is moderate. There has been no fever. She is Sexually active. There is No history of pyelonephritis. Associated symptoms include frequency and urgency. Pertinent negatives include no chills, no sweats, no nausea, no vomiting, no discharge, no hematuria, no hesitancy, no possible and no flank pain. Treatments tried: Pyridium. Her past medical history does not include kidney stones, single kidney, urological procedure, recurrent UTIs, urinary stasis or catheterization. PAST MEDICAL HISTORY Diagnosis Date History of left breast cancer PAST SURGICAL HISTORY Procedure Laterality Date PAST SURGICAL HISTORY OF 1989 [facility] PAST SURGICAL HISTORY OF cataract LANDR 2006, 2009 PAST SURGICAL HISTORY OF skin graft finger as a child PAST SURGICAL HISTORY OF 07/26/2020 lumpectomy ALLERGIES Sulfa (Sulfonamide Antibiotics) MEDICATIONS tamoxifen (NOLVADEX) 20 mg tablet TAKE 1 TABLET ONCE DAILY MULTIVITAMIN ORAL Take 1 tablet by mouth once daily. cholecalciferol (VITAMIN D3) 1,000 unit tab tablet Take 1,000 Units by mouth once daily. biotin 5,000 mcg ODT Take 1 tablet by mouth once daily. nitrofurantoin monohydrate and macrocrystal (MACROBID) 100 mg capsule Take 1 capsule by mouth twice daily for 5 days. phenazopyridine (PYRIDIUM) 200 mg tablet Take 1 tablet by mouth three times daily as needed. FAMILY HISTORY Problem Relation Age of Onset Breast Cancer Sister 35 at age 39 Diabetes Father Kidney failure Father Social History Tobacco Use Smoking status: Never Smokeless tobacco: Never Vaping Use Vaping Use: Never used Substance Use Topics Alcohol use: Never Drug use: Never Review of Systems Constitutional: Negative for chills, fatigue and fever. Eyes: Negative for photophobia, pain, discharge, redness and itching. Respiratory: Negative for apnea, cough and choking. Cardiovascular: Negative for chest pain, palpitations and leg swelling. Gastrointestinal: Negative for abdominal pain, nausea and vomiting. Genitourinary: Positive for dysuria, frequency and urgency. Negative for flank pain, hematuria and hesitancy. Musculoskeletal: Negative for arthralgias, back pain and gait problem. Skin: Negative for color change, pallor, rash and wound. Allergic/Immunologic: Negative for environmental allergies, food allergies and immunocompromised state. Neurological: Negative for dizziness, facial asymmetry and headaches. Hematological: Negative for adenopathy. Does not bruise/bleed easily. Psychiatric/Behavioral: Negative for agitation and behavioral problems. Objective BP 118/74 Pulse 98 Temp 37.1 ?C (98.8 ?F) Resp 16 Wt 85.7 kg (189 lb) SpO2 96% BMI 27.31 kg/m? Physical Exam Vitals and nursing note reviewed. Constitutional: General: She is not in acute distress. Appearance: Normal appearance. She is normal weight. She is not ill-appearing, toxic-appearing or diaphoretic. HENT: Head: Normocephalic and atraumatic. Right Ear: Ear canal and external ear normal. Left Ear: Ear canal and external ear normal. Nose: Nose normal. No congestion or rhinorrhea. Mouth/Throat: Mouth: Mucous membranes are moist. Pharynx: No oropharyngeal exudate or posterior oropharyngeal erythema. Eyes: General: Right eye: No discharge. Left eye: No discharge. Extraocular Movements: Extraocular movements intact. Conjunctiva/sclera: Conjunctivae normal. Pupils: Pupils are equal, round, and reactive to light. Cardiovascular: Rate and Rhythm: Normal rate and regular rhythm. Pulses: Normal pulses. Heart sounds: Normal heart sounds. No murmur heard. No friction rub. Pulmonary: Effort: Pulmonary effort is normal. No respiratory distress. Breath sounds: Normal breath sounds. No stridor. No wheezing, rhonchi or rales. Chest: Chest wall: No tenderness. Abdominal: General: Abdomen is flat. There is no distension. Palpations: Abdomen is soft. There is no mass. Tenderness: There is no abdominal tenderness. There is no (more content not included)... [facility] 09-02-2022 History of Presen t illness Narrative This note was created using ELVPHD. Subjective Barbara Wright is a 62 year old female. 62 year old female with PMH left breast CA (on Tomaxifin) presents for possible UTI. +frequency +urgency +burning +suprapubic pressure +pink tinge when wiping. Denies abdominal pain. Denies flank pain Denies N/V/D Denies skin rash or lesions. Denies vaginal bleeding. Denies vaginal discharge. Recently sexually active. Denies concerns for STIs. The history is provided by the patient. No professor of languages was used. UTI This is a new problem. The current episode started yesterday. The problem occurs every urination. The problem has been gradually worsening. The quality of the pain is described as burning. The pain is at a severity of 5/10. The pain is moderate. There has been no fever. She is Sexually active. There is No history of pyelonephritis. Associated symptoms include frequency and urgency. Pertinent negatives include no chills, no sweats, no nausea, no vomiting, no discharge, no hematuria, no hesitancy, no possible and no flank pain. Treatments tried: Pyridium. Her past medical history does not include kidney stones, single kidney, urological procedure, recurrent UTIs, urinary stasis or catheterization. PAST MEDICAL HISTORY Diagnosis Date History of left breast cancer PAST SURGICAL HISTORY Procedure Laterality Date PAST SURGICAL HISTORY OF 1989 [facility] PAST SURGICAL HISTORY OF cataract L&R 2006, 2009 PAST SURGICAL HISTORY OF skin graft finger as a child PAST SURGICAL HISTORY OF 07/26/2020 lumpectomy ALLERGIES Sulfa (Sulfonamide Antibiotics) MEDICATIONS tamoxifen (NOLVADEX) 20 mg tablet TAKE 1 TABLET ONCE DAILY MULTIVITAMIN ORAL Take 1 tablet by mouth once daily. cholecalciferol (VITAMIN D3) 1,000 unit tab tablet Take 1,000 Units by mouth once daily. biotin 5,000 mcg ODT Take 1 tablet by mouth once daily. nitrofurantoin monohydrate and macrocrystal (MACROBID) 100 mg capsule Take 1 capsule by mouth twice daily for 5 days. phenazopyridine (PYRIDIUM) 200 mg tablet Take 1 tablet by mouth three times daily as needed. FAMILY HISTORY Problem Relation Age of Onset Breast Cancer Sister 35 at age 39 Diabetes Father Kidney failure Father Social History Tobacco Use Smoking status: Never Smokeless tobacco: Never Vaping Use Vaping Use: Never used Substance Use Topics Alcohol use: Never Drug use: Never Review of Systems Constitutional: Negative for chills, fatigue and fever. Eyes: Negative for photophobia, pain, discharge, redness and itching. Respiratory: Negative for apnea, cough and choking. Cardiovascular: Negative for chest pain, palpitations and leg swelling. Gastrointestinal: Negative for abdominal pain, nausea and vomiting. Genitourinary: Positive for dysuria, frequency and urgency. Negative for flank pain, hematuria and hesitancy. Musculoskeletal: Negative for arthralgias, back pain and gait problem. Skin: Negative for color change, pallor, rash and wound. Allergic/Immunologic: Negative for environmental allergies, food allergies and immunocompromised state. Neurological: Negative for dizziness, facial asymmetry and headaches. Hematological: Negative for adenopathy. Does not bruise/bleed easily. Psychiatric/Behavioral: Negative for agitation and behavioral problems. Objective BP 118/74 Pulse 98 Temp 37.1 C (98.8 F) Resp 16 Wt 85.7 kg (189 lb) SpO2 96% BMI 27.31 kg/m Physical Exam Vitals and nursing note reviewed. Constitutional: General: She is not in acute distress. Appearance: Normal appearance. She is normal weight. She is not ill-appearing, toxic-appearing or diaphoretic. HENT: Head: Normocephalic and atraumatic. Right Ear: Ear canal and external ear normal. Left Ear: Ear canal and external ear normal. Nose: Nose normal. No congestion or rhinorrhea. Mouth/Throat: Mouth: Mucous membranes are moist. Pharynx: No oropharyngeal exudate or posterior oropharyngeal erythema. Eyes: General: Right eye: No discharge. Left eye: No discharge. Extraocular Movements: Extraocular movements intact. Conjunctiva/sclera: Conjunctivae normal. Pupils: Pupils are equal, round, and reactive to light. Cardiovascular: Rate and Rhythm: Normal rate and regular rhythm. Pulses: Normal pulses. Heart sounds: Normal heart sounds. No murmur heard. No friction rub. Pulmonary: Effort: Pulmonary effort is normal. No respiratory distress. Breath sounds: Normal breath sounds. No stridor. No wheezing, rhonchi or rales. Chest: Chest wall: No tenderness. Abdominal: General: Abdomen is flat. There is no distension. Palpations: Abdomen is soft. There is no mass. Tenderness: There is no abdominal tenderness. There is no right CVA tenderness, left CVA tenderness, guarding or rebound. Hernia: No hernia is present. Musculoskeletal: General: No swelling, tenderness, deformity or signs of injury. Normal range of motion. Cervical back: Normal range of motion and neck supple. No rigidity. Right lower leg: No edema. Left lower leg: No edema. Lymphadenopathy: Cervical: No cervical adenopathy. Skin: General: Skin is warm and dry. Capillary Refill: Capillary refill takes less than 2 seconds. Coloration: Skin is not jaundiced or pale. Findings: No bruising, erythema, lesion or rash. Neurological: General: No focal deficit present. Mental Status: She is alert and oriented to person, place, and time. Cranial Nerves: No cranial nerve deficit. Sensory: No sensory deficit. Motor: No weakness. Coordination: Coordination normal. Gait: Gait normal. Psychiatric: Mood and Affect: Mood normal. Behavior: Behavior normal. Thought Content: Thought content normal. Judgment: Judgment normal. Assessment and Plan ASSESSMENT/PLAN: 1. Dysuria - ICD9: 788.1, ICD10: R30.0 Acute Onset last night - UA positive for faye esterase, hematuria, proteinuria, nitrates---patient took Pyridium. - Send urine for culture - Begin treatment with Macrobid 100 mg BID for 5 days - Patient education for prevention given - UA DIP, URINE (POC) - URINE CULTURE Deanna Bennett APRN.CNP documented in this encounter [facility] 08-18-2022 Note HNO ID: [id number] Author: Tor Ford APRN.CNP Service: ? Author Type: Nurse Practitioner Type: Progress Notes Filed: 08/18/2022 8:24 AM Note Text: Chief Complaint Patient presents with: Established Patient HPI: Barbara Wright is a 62 year old female who presents here today for follow up DCIS. Per Dr. Cox's previous note: H/o HTN. Pathology: MICROSCOPIC DIAGNOSIS Left breast, stereotactic core biopsy: Ductal carcinoma in situ with the following characteristics: Architectural Pattern - solid and cribriform. Nuclear Grade - 3 Necrosis - present (central comedo necrosis). Calcifications - present. ER (clone [id number]) positive (>95%, strong intensity) MT (clone 16/1E2) positive (71%, low to moderate intensity) Her-2Neu (clone [id number]) positive (2-3+) Pathology: MICROSCOPIC DIAGNOSIS Left breast, lumpectomy wire localization: Ductal carcinoma in situ. See cancer summary in the comment section. COMMENT DUCTAL CARCINOMA IN SITU SUMMARY: Procedure - excision (lumpectomy with wire localization) Specimen laterality - left Tumor site - not specified Ductal carcinoma in situ: Size (extent) of DCIS - 0.6 x 0.5 cm (measured microscopically) Number of blocks with DCIS - 3 Number of blocks examined - 12 Histologic type - ductal carcinoma in situ Architectural pattern - solid and comedo Nuclear grade - grade 2-3 (intermediate to high) Necrosis - present, central (expansive ?comedo? necrosis) Margins - margins uninvolved by ductal carcinoma in situ. The ductal carcinoma in situ is 1.3 cm away from the anterior margin and 1.7 cm away from the second closest superior margin. Regional lymph nodes - no lymph nodes submitted or found. Distant metastasis - not applicable Additional pathologic findings - fibrocystic changes, adenosis and intraductal hyperplasia without atypia. RADIATION:08/30/20 - 09/24/20 Current therapy:Tamoxifen Began 10/06/20 No new concerns today. Appetite: Good. Energy level: Normal. Denies fevers or recent illness. Resp:denies cough or sob Cardiac:denies chest pain/palpitations GI:denies abd pain, n/v, moving bowels regularly :denies dysuria/hematuria Extrem:denies pain to back/bones/joints Endo:hot flashes-had prior in perimenopausal period- Very rarely. 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 Past medical history, appointments, medications, allergies reviewed. No changes. EXAM: BP 109/69 Pulse 87 Temp 36.6 ?C (97.8 ?F) (Temporal) Ht 177.2 cm (5' 9.75 ) Wt 86 kg (189 lb 8 oz) BMI 27.39 kg/m? APPEARANCE Well appearing, alert, in no acute distress, well-hydrated, well nourished. HEART RRR with normal S1 and S2, no murmurs LUNG clear to auscultation BREAST FEMALE no mass/nodule b/l, L scar to upper/radiation changes LYMPH NODES No cervical lymphadenopathy, No supraclavicular lymphadenopathy, and No axillary lymphadenopathy. ABDOMEN bowel sounds normoactive, soft, non-tender EXTREMITIES No edema NEURO Awake, alert and oriented x 3, Normal gait, and No involuntary motions. SKIN Skin color, texture, turgor normal, no suspicious rashes or lesions ASSESSMENT/PLAN: 1. 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 - No concerning findings on exam. - Tolerating tamoxifen well. - Continue tamoxifen. - Mammogram due 2022-done at [facility] ordered by Dr. Montero. - Follow up in 6 months. - Pt. aware to call office with any questions/concerns. The patient indicates understanding of these issues and agrees with the plan. All documentation from previous visit of 02/14/22-Dr. Cox/myself was copied and pasted, documentation has been reviewed and edited as necessary for today's visit. Tor Ford APRN.COMMERCIAL LEASE ADMINISTRATOR [facility] 05-08-2022 Note HNO ID: [id number] Author: Chitra Wall APRN.COMMERCIAL LEASE ADMINISTRATOR Service: ? Author Type: Nurse Practitioner Type: Progress Notes Filed: 05/08/2022 11:50 AM Note Text: CC: Patient presents with: Urinary Frequency: burning with urination and hematuria x last night HPI Barbara Wright is a 61 year old female who presents with complaint of possible UTI. These symptoms have been present for 2 days. Associated symptoms: burning, frequency, and hematuria Denies: hematuria, pressure, fever, chills, sweats, and flank pain Treatments: nothing The ROS was otherwise negative. PMH, Medications, labs, allergies, and recent past visits with PCP were reviewed and updated as able. PHYSICAL EXAM: BP 122/70 Pulse 98 Temp 36.8 ?C (98.3 ?F) Resp 18 Wt 85.3 kg (188 lb) SpO2 97% BMI 27.85 kg/m? General: Well appearing and alert CV: Regular rate and rhythm without obvious murmur Lungs: clear to auscultation bilaterally Back: straight and symmetric Abdomen: soft, nontender, nondistended PAST MEDICAL HISTORY Diagnosis Date History of left breast cancer PAST SURGICAL HISTORY Procedure Laterality Date PAST SURGICAL HISTORY OF 1989 [facility] PAST SURGICAL HISTORY OF cataract LANDR 2006, 2009 PAST SURGICAL HISTORY OF skin graft finger as a child PAST SURGICAL HISTORY OF 07/26/2020 lumpectomy ALLERGIES Sulfa (Sulfonamide Antibiotics) MEDICATIONS hydrOXYzine HCl (ATARAX) 25 mg tablet Take 1-2 tablets by mouth three times daily as needed. tamoxifen (NOLVADEX) 20 mg tablet Take 1 tablet (20 mg) by mouth once daily. MULTIVITAMIN ORAL Take 1 tablet by mouth once daily. cholecalciferol (VITAMIN D3) 1,000 unit tab tablet Take 1,000 Units by mouth once daily. biotin 5,000 mcg ODT Take 1 tablet by mouth once daily. nitrofurantoin monohydrate and macrocrystal (MACROBID) 100 mg capsule Take 1 capsule by mouth twice daily for 5 days. phenazopyridine (PYRIDIUM) 200 mg tablet Take 1 tablet by mouth three times daily as needed for up to 3 days. FAMILY HISTORY Problem Relation Age of Onset Breast Cancer Sister 35 at age 39 Diabetes Father Kidney failure Father Social History Tobacco Use Smoking status: Never Smokeless tobacco: Never Vaping Use Vaping Use: Never used Substance Use Topics Alcohol use: Never Drug use: Never ASSESSMENT/PLAN: 1. Urinary frequency - ICD9: 788.41, ICD10: R35.0 acute - Send urine for culture - Begin treatment with Macrobid 100 mg BID for 5 days - UA DIP, URINE (POC) - URINE CULTURE Pyridium PRN Prescription instructions reviewed with patient as applicable. Potential red flag symptoms discussed with the patient. Reviewed appropriate action plan to take if red flag symptoms occur. Patient agreeable to treatment plan. Chitra Wall APRN.[facility] 05-08-2022 History of Presen t illness Narrative CC: Patient presents with: Urinary Frequency: burning with urination and hematuria x last night HPI Barbara Wright is a 61 year old female who presents with complaint of possible UTI. These symptoms have been present for 2 days. Associated symptoms: burning, frequency, and hematuria Denies: hematuria, pressure, fever, chills, sweats, and flank pain Treatments: nothing The ROS was otherwise negative. PMH, Medications, labs, allergies, and recent past visits with PCP were reviewed and updated as able. PHYSICAL EXAM: BP 122/70 Pulse 98 Temp 36.8 C (98.3 F) Resp 18 Wt 85.3 kg (188 lb) SpO2 97% BMI 27.85 kg/m General: Well appearing and alert CV: Regular rate and rhythm without obvious murmur Lungs: clear to auscultation bilaterally Back: straight and symmetric Abdomen: soft, nontender, nondistended PAST MEDICAL HISTORY Diagnosis Date History of left breast cancer PAST SURGICAL HISTORY Procedure Laterality Date PAST SURGICAL HISTORY OF 1989 D&C PAST SURGICAL HISTORY OF cataract L&R 2006, 2009 PAST SURGICAL HISTORY OF skin graft finger as a child PAST SURGICAL HISTORY OF 07/26/2020 lumpectomy ALLERGIES Sulfa (Sulfonamide Antibiotics) MEDICATIONS hydrOXYzine HCl (ATARAX) 25 mg tablet Take 1-2 tablets by mouth three times daily as needed. tamoxifen (NOLVADEX) 20 mg tablet Take 1 tablet (20 mg) by mouth once daily. MULTIVITAMIN ORAL Take 1 tablet by mouth once daily. cholecalciferol (VITAMIN D3) 1,000 unit tab tablet Take 1,000 Units by mouth once daily. biotin 5,000 mcg ODT Take 1 tablet by mouth once daily. nitrofurantoin monohydrate and macrocrystal (MACROBID) 100 mg capsule Take 1 capsule by mouth twice daily for 5 days. phenazopyridine (PYRIDIUM) 200 mg tablet Take 1 tablet by mouth three times daily as needed for up to 3 days. FAMILY HISTORY Problem Relation Age of Onset Breast Cancer Sister 35 at age 39 Diabetes Father Kidney failure Father Social History Tobacco Use Smoking status: Never Smokeless tobacco: Never Vaping Use Vaping Use: Never used Substance Use Topics Alcohol use: Never Drug use: Never ASSESSMENT/PLAN: 1. Urinary frequency - ICD9: 788.41, ICD10: R35.0 acute - Send urine for culture - Begin treatment with Macrobid 100 mg BID for 5 days - UA DIP, URINE (POC) - URINE CULTURE Pyridium PRN Prescription instructions reviewed with patient as applicable. Potential red flag symptoms discussed with the patient. Reviewed appropriate action plan to take if red flag symptoms occur. Patient agreeable to treatment plan. Chitra Wall APRN.CRISTINO documented in this encounter [facility] 02-17-2022 History of Presen t illness Narrative This note was created using ELVPHD. Subjective Barbara Wright is a 61 year old female. HPI Patient presents with a itchy rash on her left flank, left shoulder area and groin for 2-3 days. Her currently has scabies with symptoms for over a week. He had travelled and then shortly after came down with a rash. No other new exposures. Review of Systems Constitutional: Negative. HENT: Negative. Eyes: Negative. Respiratory: Negative. Cardiovascular: Negative. Gastrointestinal: Negative. Genitourinary: Negative. Skin: Positive for rash. All other systems reviewed and are negative. PAST MEDICAL HISTORY Diagnosis Date History of left breast cancer Current Outpatient Medications Medication Sig Dispense Refill permethrin (ELIMITE) 5 % cream Apply 1 application to affected area one time only for 1 dose. massage into skin from neck to feet, leave on 8-12hrs, wash off; Info: repeat 2wks if live mites persist. Itching may persist after effective treatment. 60 g 1 tamoxifen (NOLVADEX) 20 mg tablet Take 1 tablet (20 mg) by mouth once daily. 90 tablet 3 MULTIVITAMIN ORAL Take 1 tablet by mouth once daily. cholecalciferol (VITAMIN D) 1,000 unit tab tablet Take 1,000 Units by mouth once daily. biotin 5,000 mcg ODT Take 1 tablet by mouth once daily. hydrOXYzine HCl (ATARAX) 25 mg tablet Take 1-2 tablets by mouth three times daily as needed. 30 tablet 0 predniSONE (DELTASONE) 20 mg tablet Take 2 tablets by mouth once daily for 5 days. 10 tablet 0 No current facility-administered medications for this visit. PAST SURGICAL HISTORY Procedure Laterality Date PAST SURGICAL HISTORY OF 1989 D&C PAST SURGICAL HISTORY OF cataract L&R 2006, 2009 PAST SURGICAL HISTORY OF skin graft finger as a child PAST SURGICAL HISTORY OF 07/26/2020 lumpectomy FAMILY HISTORY Problem Relation Age of Onset Breast Cancer Sister 35 at age 39 Diabetes Father Kidney failure Father Social History Tobacco Use Smoking status: Never Smoker Smokeless tobacco: Never Used Vaping Use Vaping Use: Never used Substance Use Topics Alcohol use: Never Drug use: Never Objective BP 128/66 Pulse 96 Temp 37 C (98.6 F) Resp 18 Wt 84.7 kg (186 lb 12.8 oz) SpO2 99% BMI 27.67 kg/m Physical Exam Vitals reviewed. Constitutional: Appearance: Normal appearance. HENT: Head: Normocephalic and atraumatic. Skin: General: Skin is warm and dry. Findings: Rash present. Comments: Multiple red raised papular areas on the left scapula and left flank, and bilateral groin. some in linear distribution. No vesicles. No petechiae or purpura. Neurological: Mental Status: She is alert. Assessment and Plan ASSESSMENT/PLAN: 1. Scabies - ICD9: 133.0, ICD10: B86 - Apply Elimite neck down after shower over night. Wash off in a.m. Repeat in 1 week times one. - Itching and bumps may continue for some weeks even though the mite has been removed. - Wash all clothes and put shoes and items that can not be washed in a sealed bag for 3 days. - Follow up with PCP if no improvement in 3-4 weeks after treatment. Any Montano PA-C documented in this encounter [facility] 02-14-2022 History of Presen t illness Narrative Chief Complaint Patient presents with: Established Patient HPI: Barbara Wright is a 61 year old female who presents here today for follow up DCIS. Per Dr. Cox's previous note: H/o HTN. Pathology: MICROSCOPIC DIAGNOSIS Left breast, stereotactic core biopsy: Ductal carcinoma in situ with the following characteristics: Architectural Pattern solid and cribriform. Nuclear Grade - 3 Necrosis - present (central comedo necrosis). Calcifications present. ER (clone [id number]) positive (>95%, strong intensity) MT (clone [id number]) positive (71%, low to moderate intensity) Her-2Neu (clone [id number]) positive (2-3+) Pathology: MICROSCOPIC DIAGNOSIS Left breast, lumpectomy wire localization: Ductal carcinoma in situ. See cancer summary in the comment section. COMMENT DUCTAL CARCINOMA IN SITU SUMMARY: Procedure excision (lumpectomy with wire localization) Specimen laterality left Tumor site not specified Ductal carcinoma in situ: Size (extent) of DCIS 0.6 x 0.5 cm (measured microscopically) Number of blocks with DCIS 3 Number of blocks examined 12 Histologic type ductal carcinoma in situ Architectural pattern solid and comedo Nuclear grade grade 2-3 (intermediate to high) Necrosis present, central (expansive comedo necrosis) Margins margins uninvolved by ductal carcinoma in situ. The ductal carcinoma in situ is 1.3 cm away from the anterior margin and 1.7 cm away from the second closest superior margin. Regional lymph nodes no lymph nodes submitted or found. Distant metastasis not applicable Additional pathologic findings fibrocystic changes, adenosis and intraductal hyperplasia without atypia. RADIATION:08/30/20 - 09/24/20 Current therapy:Tamoxifen Began 10/06/20 No new concerns today. Recent surgery to L finger. Done at [facility]-no complications per pt. Appetite: Good. Energy level: Good. Denies fevers or recent illness. Resp:denies cough or sob Cardiac:denies chest pain/palpitations GI:denies abd pain, n/v, moving bowels regularly :denies dysuria/hematuria Extrem:denies pain to back/bones/joints Endo:hot flashes-had prior in perimenopausal period- Not very often. Maybe a couple times per week. Neuro:denies symptoms of neuropathy Skin:denies rashes/lesions Heme:denies bleeding, up to date on [employer] exam-next due October 2022 The ROS is otherwise negative. Past medical history, appointments, medications, allergies reviewed. No changes. EXAM: BP 109/70 Pulse 95 Temp 37.2 C (99 F) Ht 175 cm (5' 8.9 ) Wt 85 kg (187 lb 8 oz) SpO2 94% BMI 27.77 kg/m APPEARANCE Well appearing, alert, in no acute distress, well-hydrated, well nourished. HEART RRR with normal S1 and S2, no murmurs LUNG clear to auscultation BREAST FEMALE no mass/nodule b/l, L scar to upper-mild tenderness to scar-stable LYMPH NODES No cervical lymphadenopathy, No supraclavicular lymphadenopathy and No axillary lymphadenopathy. ABDOMEN bowel sounds normoactive, soft, non-tender, non-distended, without organomegaly or palpable masses EXTREMITIES No edema NEURO Awake, alert and oriented x 3, Normal gait and No involuntary motions. SKIN Skin color, texture, turgor normal, no suspicious rashes or lesions ASSESSMENT/PLAN: 1. 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 - No concerning findings on exam. - Tolerating tamoxifen well. - Mammogram due 2021-done at [facility] ordered by Dr. Montero. - Continue tamoxifen. - Mammogram per Dr. Montero-Due 2021. - Follow up in 6 months. - Pt. aware to call office with any questions/concerns. The patient indicates understanding of these issues and agrees with the plan. All documentation from previous visit of 08/15/21-Dr. Cox/myself was copied and pasted, documentation has been reviewed and edited as necessary for today's visit. Tor Ford APRN.CRISTINO documented in this encounter [facility] 11-17-2021 History of Presen t illness Narrative Barbara is a 61 year old who presents for an annual gynecologic exam without complaints. Not using the pessary Postmenopausal: Yes since age [age] HRT use: No. Last Pap: 10/13/2020 normal HPV: 10/12/2020 negative History of abnormal pap: Yes Last mammogram: 2020 normal @ [facility] History of abnormal mammogram: Yes left DCIS Jun 2020 Sexually active: Yes Pain with intercourse: No Postcoital bleeding: No Vaginal dryness: Yes OB History T0 L3 SAB0 IAB0 Ectopic0 Multiple0 Live Births0 Traveling Sales Representative History LMP: Premenopausal Age at Menarche: Age at First : Age at Menopause: Traveling Sales Representative History Comments: Sexual Activity: Yes; Male Contraception: Vasectomy PAST MEDICAL HISTORY Diagnosis Date History of left breast cancer PAST SURGICAL HISTORY Procedure Laterality Date PAST SURGICAL HISTORY OF 1989 D&C PAST SURGICAL HISTORY OF cataract L&R 2006, 2009 PAST SURGICAL HISTORY OF skin graft finger as a child PAST SURGICAL HISTORY OF 07/26/2020 lumpectomy FAMILY HISTORY Problem Relation Age of Onset Breast Cancer Sister 35 at age 39 Diabetes Father Kidney failure Father SOCIAL HISTORY Social History Tobacco Use Smoking status: Never Smoker Smokeless tobacco: Never Used Vaping Use Vaping Use: Never used Substance Use Topics Alcohol use: Never Drug use: Never REVIEW OF SYSTEMS Abdomen: No abdominal pain, nausea, vomiting, diarrhea, or constipation. No bloating, early satiety, indigestion, or increased flatulence. Bladder: No dysuria, gross hematuria,+ urinary frequency, +urinary urgency, Breast: No breast lumps, nipple d/c, overlying skin changes, redness or skin retraction Allergies and current medication updated:Yes EXAM: Ht 5' 10 (1.78m) Wt 187 lb 6.4 oz (85.0kg) BMI 26.89 kg/(m^2). GENERAL: pleasant, female in no apparent distress HEENT: Normocephalic, atraumatic, mucus membranes moist and no lesions NECK: Supple, full range of motion, no adenopathy and thyroid normal DERMATOLOGY: Normal, without lesions, non-icteric and non-hirsute BREAST: soft, symmetric, no dominant mass, normal nipple-areolar complex, no lymphadenopathy, no nipple discharge and scar on upper left breast from surgery CHEST: Normal inspiratory effort ABDOMEN: soft, non-tender and no masses PELVIC: external genitalia normal, normal Bartholin's glands, urethra, Gates's glands, no vulvar lesions, no cervical lesions, physiologic discharge present, normal appearing perineal body and perianal region, cystocele 1st degree, cervical prolapse 2nd degree BIMANUAL: uterus normal size, shape and consistency, no adnexal masses and non-tender RECTOVAGINAL: deferred. NEURO: alert and oriented x3,exam grossly non-focal EXTREMITIES: normal ASSESSMENT/PLAN: 1) Health maintenance: Pap/HPV up to date. Mammogram up to date done at [facility] Nutrition, exercise and routine health maintenance exams reviewed. Calcium/Vitamin D supplementation information provided. Colon cancer screening: up to date with screening 2) Follow up one year or sooner as needed Zuri Camara APRN.CRISTINO documented in this encounter [facility] Diagnosis Ductal carcinoma in situ (DCIS) of left breast- [facility] Diagnosis Scabies- Primary [facility] Diagnosis Urinary frequency- Primary [facility] Diagnosis Dysuria- Primary [facility] Diagnosis Ductal carcinoma in situ (DCIS) of left breast- Primary documented in this encounter [facility] Summary Purpose Family History No Family History Records Found Advance Directives No Advanced Directives Records Found Additional Source Comments Source Comments (unrecognize d section and content) In the event this informatio n is protected by the Federal Confidentiality of Alcohol and Drug Abuse Patient Records regulations: The Federal rules restrict any use of the information to criminally investigate or prosecute any alcohol or drug abuse patient.[facility] the event this information is protected by the Federal Confidentiality of Alcohol and Drug Abuse Patient Records regulations: The Federal rules restrict any use of the information to criminally investigate or prosecute any alcohol or drug abuse patient.[facility] the event this information is protected by the Federal Confidentiality of Alcohol and Drug Abuse Patient Records regulations: The Federal rules restrict any use of the information to criminally investigate or prosecute any alcohol or drug abuse patient.[facility] the event this information is protected by the Federal Confidentiality of Alcohol and Drug Abuse Patient Records regulations: The Federal rules restrict any use of the information to criminally investigate or prosecute any alcohol or drug abuse patient.[facility] the event this information is protected by the Federal Confidentiality of Alcohol and Drug Abuse Patient Records regulations: The Federal rules restrict any use of the information to criminally investigate or prosecute any alcohol or drug abuse patient.[facility] the event this information is protected by the Federal Confidentiality of Alcohol and Drug Abuse Patient Records regulations: The Federal rules restrict any use of the information to criminally investigate or prosecute any alcohol or drug abuse patient.[facility] the event this information is protected by the Federal Confidentiality of Alcohol and Drug Abuse Patient Records regulations: The Federal rules restrict any use of the information to criminally investigate or prosecute any alcohol or drug abuse patient.[facility] Reason for Visit (unrecogniz ed section and content) Reason Comments Established Patient Reason Comments Insect Bite Pt reported recent t ravel reddened raised areas groin, (LT) shoulder, abd Reason Comments Urinary Frequency burning with urinati on and hematuria x last night Reason Comments Urinary Frequency burning with urinati on x last night, took pyridium Reason Comments Results Care Teams (unrecognized sec tion and content) Obgyn Nurse Relationship Specialty Start Date End Date Blue Novak [address] [facility] [address] [place] [address] PCP - General Family Practice 04/22/18 Asher Vásquez MD, [address] [place] [address] Physician Radiation Oncology 08/06/20 Obgyn Nurse Relationship Specialty Start Date End Date Blue Novak [address] [facility] [address] [place] [address] PCP - General Family Practice 04/22/18 Asher Vásquez MD, [address] [place] [address] Physician Radiation Oncology 08/06/20 Obgyn Nurse Relationship Specialty Start Date End Date Blue Novak [address] [facility] [address] [place] [address] PCP - General Family Medicine 04/22/18 Asher Vásquez MD, [address] [place] [address] Physician Radiation Oncology 08/06/20 Obgyn Nurse Relationship Specialty Start Date End Date Blue Novak [address] [facility] [address] [place] [address] PCP - General Family Medicine 04/22/18 Asher Vásquez MD, [address] [place] [address] Physician Radiation Oncology 08/06/20 Obgyn Nurse Relationship Specialty Start Date End Date Blue Novak MD [address] [facility] [address] [place] [address] PCP - General Family Medicine 04/22/18 Asher Vásquez MD, MD [address] [place] [address] Physician Radiation Oncology 08/06/20 Obgyn Nurse Relationship Specialty Start Date End Date Kalani Slaughter (Pss) PCP - General 04/19/23 Asher Vásquez MD, [address] [place] [address] Physician Radiation Oncology 08/06/20 INFORMATION SOURCE (unrecogn ized section and content) FOR RECORDS PERTAINING TO PATIENTS WHO ARE OR HAVE BEEN ENROLLED IN A CHEMICAL DEPENDENCY/SUBSTANCEABUSE PROGRAM, SOME INFORMATION MAY BE OMITTED. This clinical summary was aggregated from multiple sources. Caution should be exercised in using it in the provision of clinical care. This summary normalizes information from multiple sources, and as a consequence, information in this document may materially change the coding, format and clinical context of patient data. In addition, data may be omitted in some cases. CLINICAL DECISIONS SHOULD BE BASED ON THE PRIMARY CLINICAL RECORDS. [facility]. provides no warranty or guarantee of the accuracy or completeness of information in this document.
== END | disposition home or self-care (01) ==
LOC: OPBI 07:03
PROVIDERS: PCP Family Medicine; Referring Provider Surgery; Visit Provider Surgery
DX: Z12.31 Encounter for screening mammogram for malignant neoplasm of breast (principal); Z85.3 Personal history of malignant neoplasm of breast
CPT/HCPCS: 77063; 77067

== ENCOUNTER → 2023-11-15 | Outpatient (CLI) | payer OTHER, SELFPAY ==
[2023-11-15 18:37] LABS: Ferritin 155 ng/mL (8-252); T4 Free Direct 0.88 ng/dL (0.76-1.46); Thyroid Stim Hormone (TSH) 1.36 uIU/mL (0.358-3.74)
[2023-11-15 19:13] LABS: T3 Total - Triiodothyronine 1.22 ng/mL (0.6-1.81); Vitamin B12 176 pg/mL (211-911); Vitamin D,25 Hydroxy 54.2 ng/mL
[2023-11-20 09:09] LABS: Anti-Nuclear Antibody Test Negative (.); Thyroid Peroxidase AB < 9 IU/mL (0-34); Zinc, Plasma or Serum 71 ug/dL (44-115)
== END | disposition home or self-care (01) ==
LOC: MTLAB 14:58
PROVIDERS: PCP Family Medicine; Referring Provider Physician Assistant Medical; Visit Provider Physician Assistant Medical
DX: L65.9 Nonscarring hair loss, unspecified (principal)
CPT/HCPCS: 36415; 82306; 82607; 82652; 82728; 84439; 84443; 84480; 84630; 86038; 86376

== ENCOUNTER → 2024-08-12 | Outpatient (CLI) | payer OTHER, SELFPAY ==
--- NOTE | 2024-08-12 07:08 | BI_ITS ---
MAMMOGRAPHY - BILATERAL SCREENING REASON FOR EXAM: Female, 64 years old. Routine annual screening examination. PERTINENT HISTORY: Personal history of breast cancer. History of prior left lumpectomy with radiation treatment. Sister with breast cancer. TECHNIQUE: Digital bilateral breast michael (3D mammographic acquisition) in the CC and MLO projections. 2-D mediolateral oblique (MLO) and craniocaudad (CC) views of both breasts were obtained. CAD: Full Field Digital Mammography with Computer Added Detection was performed. COMPARISON: Comparison is made with prior study dated August 08, 2023 and August 03, 2022. FINDINGS: Breast Composition: The breasts are heterogeneously dense, which may obscure small masses. There are no dominant masses or suspicious calcifications. Once again, the patient is status post lumpectomy in the deep upper central portion of the left breast with resultant postoperative scarring. No other significant abnormalities are identified. There has been no significant change since the prior study. BI/SCRN MAMM (CAD)W/MICHAEL BILAT IMPRESSION: Stable bilateral screening mammogram. Yearly follow-up mammogram recommended. (A) ASSESSMENT CATEGORY: BIRADS Category 2: Benign. A letter regarding these results will be sent to the patient by the facility within 30 days. Approximately 10% of breast cancers are not detected by mammography. A normal mammogram should not delay biopsy of a clinically suspicious abnormality. [id number] Electronically Signed: Poncho Beckwith MD at 9:42 EST ,
== END | disposition home or self-care (01) ==
LOC: OPBI 07:07
PROVIDERS: PCP Family Medicine; Referring Provider Nurse Practitioner; Visit Provider Nurse Practitioner
DX: Z12.31 Encounter for screening mammogram for malignant neoplasm of breast (principal); D05.12 Intraductal carcinoma in situ of left breast
CPT/HCPCS: 77063; 77067